=== PATIENT | male | born 1960 | race Caucasian/White ===

== ENCOUNTER 2016-02-28 18:03 | Emergency (ER) | payer OTHER ==
[2016-02-28] MEDS ORDERED: IPRATROPIUM-ALBUTEROL 3 ML NEB INHALATION STA (20:07)
--- NOTE | 2016-02-28 20:12 | ED ---
General Adult HPI - General Chief complaint: Shortness of Breath Stated complaint: diff swallow, coughing Time Seen by Provider: 02/28/16 19:41 Source: patient, RN notes reviewed Mode of arrival: ambulatory Limitations: no limitations - History of Present Illness Initial comments: Patient is a 55-year-old male presents to the emergency room for evaluation of cough and congestion. Patient states he's had a cough for the past week. Patient denies taking anything for symptoms. Patient states he has a productive cough and is coughing up white phlegm. Patient does admit to having history of COPD which he uses an inhaler as needed for. Patient also states that he smokes about a pack per day. Patient denies any fevers. Patient denies chills. Patient also states he's had a sore throat for the past week. Patient states it hurts to swallow. Patient denies abdominal pain, nausea, vomiting, headache, dizziness, ear pain, neck pain. Patient states he feels short of breath after having a coughing attack. Patient denies any chest pain. Patient denies any other significant past medical history besides COPD. - Related Data Home Medications Medication Instructions Recorded Confirmed Budesonide/Formoterol Fumarate 2 puff INHALATION RT-BID 02/28/16 02/28/16 [Symbicort 160-4.5 Mcg Inhaler] Previous Rx's Medication Instructions Recorded Azithromycin [Zithromax Z-pack] 250 mg PO DIRECTED #6 tab 02/28/16 predniSONE 50 mg PO DAILY #5 tab 02/28/16 Allergies Allergy/AdvReac Type Severity Reaction Status Date / Time aspirin Allergy Rash/Hives Verified 09/23/15 01:49 Review of Systems ROS Statement: Those systems with pertinent positive or pertinent negative responses have been documented in the HPI. ROS Other: All systems not noted in ROS Statement are negative. Past Medical History Past Medical History: COPD History of Any Multi-Drug Resistant Organisms: None Reported Past Surgical History: No Surgical Hx Reported Additional Past Surgical History / Comment(s): abdominal surgery Past Psychological History: No Psychological Hx Reported Smoking Status: Current every day smoker Past Alcohol Use History: Occasional Past Drug Use History: None Reported General Exam - General Exam Comments Initial Comments: Sitting in exam room in no acute distress. Limitations: no limitations General appearance: alert, in no apparent distress Head exam: Present: atraumatic, normocephalic, normal inspection Eye exam: Present: normal appearance ENT exam: Present: normal exam, normal oropharynx, mucous membranes moist, TM's normal bilaterally Neck exam: Present: normal inspection, full ROM. Absent: tenderness, lymphadenopathy Respiratory exam: Present: wheezes. Absent: respiratory distress Cardiovascular Exam: Present: regular rate, normal rhythm, normal heart sounds GI/Abdominal exam: Present: soft, normal bowel sounds. Absent: distended, tenderness, guarding, rebound, rigid Extremities exam: Present: normal inspection, normal capillary refill Back exam: Present: normal inspection Neurological exam: Present: alert, oriented X3, CN II-XII intact, normal gait Psychiatric exam: Present: normal affect, normal mood Skin exam: Present: warm, dry, intact, normal color. Absent: rash Course Vital Signs 02/28/16 02/28/16 02/28/16 18:25 20:31 20:46 Temperature 97.4 F L Pulse Rate 76 60 66 Respiratory 16 Rate Blood Pressure 139/74 O2 Sat by Pulse 98 Oximetry 02/28/16 21:54 Temperature 97.8 F Pulse Rate 69 Respiratory 18 Rate Blood Pressure 135/74 O2 Sat by Pulse 96 Oximetry Medical Decision Making - Medical Decision Making Patient is a 55-year-old male presents emergency room for evaluation of cough and congestion. Chest x-ray shows no acute findings. Patient states he feels better after the updraft. Given patient's past medical history of COPD and symptoms lasting longer than 7 days, will place patient on antibiotics and prednisone. Discussed smoking cessation with patient. Patient states he understands everything that was discussed with him. Return parameters discussed. Case discussed with Dr. Rodriguez. - Lab Data Lab Results 02/28/16 02/28/16 Range/Units 20:21 20:21 Influenza Type A RNA Not Detected (Not Detectd) Influenza Type B (PCR) Not Detected (Not Detectd) Group A Strep Rapid Negative (Negative) - Radiology Data Radiology results: report reviewed, image reviewed Disposition Clinical Impression: Upper respiratory infection, COPD (chronic obstructive pulmonary disease) Disposition: HOME SELF-CARE Condition: Good Instructions: COPD (Chronic Obstructive Pulmonary Disease) (ED), How to Stop Smoking (ED) Additional Instructions: Take medications as directed. Continue using inhaler as needed. Please follow up with primary care provider in 24-48 hours for reevaluation. If any new symptom arises, symptoms worsen or fever develops, return to ER as soon as possible. Prescriptions: Azithromycin [Zithromax Z-pack] 250 mg PO DIRECTED #6 tab predniSONE 50 mg PO DAILY #5 tab Referrals: Kristi Saab MD [Primary Care Provider] - 1-2 days Time of Disposition: 21:43
--- NOTE | 2016-02-28 21:13 | XR ---
EXAMINATION TYPE: XR chest 2V DATE OF EXAM: 02/28/2016 8:50 PM COMPARISON: NONE HISTORY: Cough and congestion TECHNIQUE: Frontal and lateral views of the chest are obtained. FINDINGS: There is no focal air space opacity, pleural effusion, or pneumothorax seen. The cardiac silhouette size is within normal limits. There is thoracic dextro curvature. The osseous structures are intact. IMPRESSION: NO ACUTE CARDIOPULMONARY PROCESS.
[2016-02-28 21:55] VITALS: BP 135/74; PULSE 69; RESP 18; TEMP 97.8
== END 2016-02-28 21:54 | disposition home or self-care (01) ==
LOC: EC 18:03
DX: J06.9 Acute upper respiratory infection, unspecified (principal); J44.9 Chronic obstructive pulmonary disease, unspecified; Z79.51 Long term (current) use of inhaled steroids; Z88.6 Allergy status to analgesic agent; F17.200 Nicotine dependence, unspecified, uncomplicated
CPT/HCPCS: 71020; 87081; 87430; 87502; 94640; 99285

== ENCOUNTER 2016-09-18 22:26 | Emergency (ER) | payer OTHER ==
[2016-09-18 22:35] VITALS: BP 148/76; PULSE 67; RESP 18; TEMP 97.7
--- NOTE | 2016-09-18 23:02 | ED ---
General Adult HPI - General Chief complaint: ENT Stated complaint: ear pain Time Seen by Provider: 09/18/16 22:40 Source: patient, RN notes reviewed Mode of arrival: ambulatory Limitations: no limitations - History of Present Illness Initial comments: 56 yo male with history of COPD presents with bleeding from his left ear. Patient states he was cleaning his ear with a Q-tip, and he was able to get some black substance out and then immediately had bright red blood. He also had some pain associated with the use of the Q-tip. There was no fever chills. No pain prior to using a Q-tip. Denies any hearing loss. Denies any persistent bleeding. - Related Data Home Medications Medication Instructions Recorded Confirmed Budesonide/Formoterol Fumarate 2 puff INHALATION RT-BID 02/28/16 09/18/16 [Symbicort 160-4.5 Mcg Inhaler] Ipratropium-Albuterol Nebulize 3 ml INHALATION RT-Q6H 09/18/16 09/18/16 [Duoneb 0.5 mg-3 mg/3 ml Soln] Montelukast [Singulair] 10 mg PO HS 09/18/16 09/18/16 Previous Rx's Medication Instructions Recorded Ciprofloxacin-Hc Otic Susp [Cipro 3 drops LEFT EAR BID #10 ml 09/18/16 Hc Otic Suspension] Allergies Allergy/AdvReac Type Severity Reaction Status Date / Time aspirin Allergy Rash/Hives Verified 09/18/16 22:52 Review of Systems ROS Statement: Those systems with pertinent positive or pertinent negative responses have been documented in the HPI. ROS Other: All systems not noted in ROS Statement are negative. Past Medical History Past Medical History: COPD History of Any Multi-Drug Resistant Organisms: None Reported Past Surgical History: No Surgical Hx Reported Additional Past Surgical History / Comment(s): abdominal surgery Past Psychological History: No Psychological Hx Reported Smoking Status: Current every day smoker Past Alcohol Use History: Occasional Past Drug Use History: None Reported General Exam Limitations: no limitations General appearance: alert, in no apparent distress Head exam: Present: atraumatic, normocephalic Eye exam: Present: normal appearance, PERRL ENT exam: Present: normal exam, normal oropharynx, other (Left external ear canal has small amount dry blood, the anterior portion of the left tympanic membrane is ruptured. There is no active hemorrhage.) Neck exam: Present: normal inspection, full ROM Respiratory exam: Present: normal lung sounds bilaterally. Absent: respiratory distress Cardiovascular Exam: Present: regular rate, normal rhythm GI/Abdominal exam: Present: soft. Absent: distended Course Vital Signs 09/18/16 22:32 Temperature 97.7 F Pulse Rate 67 Respiratory 18 Rate Blood Pressure 148/76 O2 Sat by Pulse 97 Oximetry Medical Decision Making - Medical Decision Making 56-year-old male presents with bleeding from the left ear. This was after using a Q-tip. Patient did feel moderate amount of pain which is currently resolved. Denies any hearing loss. On examination he does have a ruptured tympanic membrane on the left. There is no active bleeding. Patient is prescribed ciprofloxacin suspension and will follow up with both his primary care physician and ENT. Disposition Clinical Impression: Ruptured tympanic membrane Disposition: HOME SELF-CARE Condition: Good Instructions: Ruptured Eardrum (ED) Prescriptions: Ciprofloxacin-Hc Otic Susp [Cipro Hc Otic Suspension] 3 drops LEFT EAR BID #10 ml Referrals: Kristi Saab MD [Primary Care Provider] - 1-2 days Fred Schuster DO [Doctor of Osteopathic Medicine] - 1-2 days Time of Disposition: 23:01
== END 2016-09-18 23:10 | disposition home or self-care (01) ==
LOC: EC 22:26
DX: H72.92 Unspecified perforation of tympanic membrane, left ear (principal); J44.9 Chronic obstructive pulmonary disease, unspecified; F17.200 Nicotine dependence, unspecified, uncomplicated; Z88.6 Allergy status to analgesic agent; Z79.51 Long term (current) use of inhaled steroids; Z79.899 Other long term (current) drug therapy
CPT/HCPCS: 99282

== ENCOUNTER 2017-03-22 08:48 | Emergency (ER) | payer OTHER ==
[2017-03-22] MEDS ORDERED: IBUPROFEN 600 MG TAB PO STA (09:24)
[2017-03-22] MEDS ORDERED: SODIUM CHLORIDE 0.9% 1,000 ML IV STA (09:24)
[2017-03-22] MEDS ORDERED: IPRATROPIUM-ALBUTEROL 3 ML NEB INHALATION STA (09:25)
--- NOTE | 2017-03-22 09:29 | ED ---
General Adult HPI - General Chief complaint: Upper Respiratory Infection Stated complaint: FLU LIKE SYMPTOMS Time Seen by Provider: 03/22/17 08:59 Source: patient, RN notes reviewed Mode of arrival: ambulatory Limitations: no limitations - History of Present Illness Initial comments: Patient 56-year-old male who presents emergency room today with chief complaint of increased bodyaches for cough congestion that started yesterday. He doesn't chills. He received body aches in his back and his arms. Patient states fell and could not get warm last night. He does admit to congestion and cough with sputum production as been white in color. States all the symptoms started yesterday. Has not taken any Tylenol Motrin. Patient denies any other complaints or symptoms. Patient admits to history of COPD a pack-a-day smoker. Patient denies any recent shortness of breath, chest pain, nausea or vomiting, numbness or tingling, dysuria or hematuria, constipation, headaches or visual changes, or any other complaints. - Related Data Home Medications Medication Instructions Recorded Confirmed Ipratropium-Albuterol Nebulize 3 ml INHALATION RT-Q6H PRN 09/18/16 03/22/17 [Duoneb 0.5 mg-3 mg/3 ml Soln] Albuterol Inhaler [Ventolin Hfa 1 - 2 puff INHALATION RT-Q4H PRN 03/22/17 Inhaler] predniSONE See Taper PO DIRECTED 03/22/17 03/22/17 Previous Rx's Medication Instructions Recorded Azithromycin [Zithromax Z-pack] 0 mg PO DIRECTED #6 tab 03/22/17 Allergies Allergy/AdvReac Type Severity Reaction Status Date / Time aspirin Allergy Rash/Hives Verified 03/22/17 09:11 Review of Systems ROS Statement: Those systems with pertinent positive or pertinent negative responses have been documented in the HPI. ROS Other: All systems not noted in ROS Statement are negative. Past Medical History Past Medical History: COPD History of Any Multi-Drug Resistant Organisms: None Reported Past Surgical History: No Surgical Hx Reported Additional Past Surgical History / Comment(s): abdominal surgery Past Psychological History: No Psychological Hx Reported Smoking Status: Current every day smoker Past Alcohol Use History: Occasional Past Drug Use History: None Reported General Exam - General Exam Comments Initial Comments: General: The patient is awake and alert, in no distress, and does not appear acutely ill. Eye: Pupils are equal, round and reactive to light, extra-ocular movements are intact. No nystagmus. There is normal conjunctiva bilaterally. No signs of icterus. Ears, nose, mouth and throat: There are moist mucous membranes and no oral lesions. Neck: The neck is supple, there is no tenderness or JVD. Cardiovascular: There is a regular rate and rhythm. No murmur, rub or gallop is appreciated. Respiratory: Expiratory wheeze bilaterally. respirations are non-labored, breath sounds are equal. No stridor, rales, or rhonchi. Gastrointestinal: Soft, non-distended, non-tender abdomen without masses or organomegaly noted. There is no rebound or guarding present. No CVA tenderness. Bowel sounds are unremarkable. Musculoskeletal: Normal ROM, no tenderness. Strength 5/5. Sensation intact. Pulses equal bilaterally 2+. Neurological: A&O x 3. CN II-XII intact, There are no obvious motor or sensory deficits. Coordination appears grossly intact. Speech is normal. Skin: Skin is warm and dry and no rashes or lesions are noted. Psychiatric: Cooperative, appropriate mood & affect, normal judgment. Limitations: no limitations Course Vital Signs 03/22/17 03/22/17 03/22/17 08:53 09:55 10:04 Temperature 97.2 F L Pulse Rate 66 51 L 55 L Respiratory 18 Rate Blood Pressure 166/83 O2 Sat by Pulse 99 Oximetry 03/22/17 10:22 Temperature Pulse Rate 59 L Respiratory 19 Rate Blood Pressure 127/64 O2 Sat by Pulse 99 Oximetry EKG Findings - EKG Comments: EKG Findings:: EKG performed at 0949: A 12-lead EKG was performed and interpreted by me as showing the following: Rate is 54, and rhythm is normal sinus. There are normal QRS complexes and normal R-wave progression. ST segments have no elevation or depression, and IL segments appear normal. Medical Decision Making - Medical Decision Making Case discussed in detail with attending physician Patient reexamined at this time shows no signs of distress resting comfortably. Patient's labs reviewed unremarkable. Chest x-ray shows no pneumonia. Patient will cover with antibiotics for bronchitis infection. Currently on steroids by the family doctor that it began yesterday. Advised continue steroids use antibiotic use of breathing treatments at home. Advised return here to the emergency room if symptoms increase worsen. - Lab Data Result diagrams: 03/22/17 09:33 03/22/17 09:33 Lab Results 03/22/17 03/22/17 03/22/17 Range/Units 09:33 09:33 09:36 WBC 7.4 (3.8-10.6) k/uL RBC 4.86 (4.30-5.90) m/uL Hgb 15.3 (13.0-17.5) gm/dL Hct 45.6 (39.0-53.0) % MCV 93.8 (80.0-100.0) fL MCH 31.4 (25.0-35.0) pg MCHC 33.4 (31.0-37.0) g/dL RDW 12.5 (11.5-15.5) % Plt Count 275 (150-450) k/uL Neutrophils % 69 % Lymphocytes % 22 % Monocytes % 6 % Eosinophils % 2 % Basophils % 1 % Neutrophils # 5.1 (1.3-7.7) k/uL Lymphocytes # 1.6 (1.0-4.8) k/uL Monocytes # 0.4 (0-1.0) k/uL Eosinophils # 0.1 (0-0.7) k/uL Basophils # 0.1 (0-0.2) k/uL Sodium 140 (137-145) mmol/L Potassium 4.2 (3.5-5.1) mmol/L Chloride 105 (98-107) mmol/L Carbon Dioxide 28 (22-30) mmol/L Anion Gap 7 mmol/L BUN 11 (9-20) mg/dL Creatinine 0.79 (0.66-1.25) mg/dL Est GFR (MDRD) Af Amer >60 (>60 ml/min/1.73 sqM) Est GFR (MDRD) Non-Af >60 (>60 ml/min/1.73 sqM) Glucose 98 (74-99) mg/dL Calcium 9.5 (8.4-10.2) mg/dL Total Bilirubin 0.6 (0.2-1.3) mg/dL AST 23 (17-59) U/L ALT 35 (21-72) U/L Alkaline Phosphatase 66 (38-126) U/L Total Protein 6.4 (6.3-8.2) g/dL Albumin 3.9 (3.5-5.0) g/dL Influenza Type A RNA Not Detected (Not Detectd) Influenza Type B (PCR) Not Detected (Not Detectd) Disposition Clinical Impression: Acute bronchitis Disposition: HOME SELF-CARE Condition: Good Instructions: Acute Bronchitis (ED) Additional Instructions: Please use medication as discussed. Please follow-up with family doctor in the next 2 days of symptoms have not improved. Please return to emergency room if the symptoms increase or worsen or for any other concerns. Prescriptions: Azithromycin [Zithromax Z-pack] 0 mg PO DIRECTED #6 tab Referrals: Kristi Saab MD [Primary Care Provider] - 1-2 days Time of Disposition: 11:20
[2017-03-22 09:54] LABS: Basophils # (A) 0.1 k/uL (0-0.2); Basophils % (A) 1 %; Eosinophils # (A) 0.1 k/uL (0-0.7); Eosinophils % (A) 2 %; HCT 45.6 % (39.0-53.0); HGB 15.3 gm/dL (13.0-17.5); Lymphocytes # (A) 1.6 k/uL (1.0-4.8); Lymphocytes % (A) 22 %; MCH 31.4 pg (25.0-35.0); MCHC 33.4 g/dL (31.0-37.0); MCV 93.8 fL (80.0-100.0); Mean Platelet Volume 6.6; Monocytes # (A) 0.4 k/uL (0-1.0); Monocytes % (A) 6 %; Neutrophils # (A) 5.1 k/uL (1.3-7.7); Neutrophils % (A) 69 %; Platelet Count 275 k/uL (150-450); RBC 4.86 m/uL (4.30-5.90); RDW 12.5 % (11.5-15.5); WBC 7.4 k/uL (3.8-10.6)
[2017-03-22 10:12] LABS: ALT 35 U/L (21-72); AST 23 U/L (17-59); Albumin 3.9 g/dL (3.5-5.0); Alkaline Phosphatase 66 U/L (38-126); Anion Gap 7 mmol/L; Blood Urea Nitrogen 11 mg/dL (9-20); Calcium 9.5 mg/dL (8.4-10.2); Carbon Dioxide 28 mmol/L (22-30); Chloride 105 mmol/L (98-107); Glucose 98 mg/dL (74-99); Potassium 4.2 mmol/L (3.5-5.1); Sodium 140 mmol/L (137-145); Total Bilirubin 0.6 mg/dL (0.2-1.3); Total Protein 6.4 g/dL (6.3-8.2)
--- NOTE | 2017-03-22 10:24 | XR ---
EXAMINATION TYPE: XR chest 2V DATE OF EXAM: 03/22/2017 COMPARISON: 02/28/2016 INDICATION: Cough congestion TECHNIQUE: Frontal and lateral views of the chest are obtained. FINDINGS: The heart size is normal. The pulmonary vasculature is normal. The lungs are clear. Scoliosis is present. IMPRESSION: 1. No acute pulmonary process.
[2017-03-22 11:32] VITALS: BP 127/76; PULSE 62; RESP 20; TEMP 97
== END 2017-03-22 11:38 | disposition home or self-care (01) ==
LOC: EC 08:48
DX: J20.9 Acute bronchitis, unspecified (principal); J44.0 Chronic obstructive pulmonary disease with (acute) lower respiratory infection; F17.210 Nicotine dependence, cigarettes, uncomplicated; Z79.52 Long term (current) use of systemic steroids; Z88.6 Allergy status to analgesic agent
CPT/HCPCS: 36415; 71046; 80053; 85025; 87502; 93005; 94640; 96360; 99284

== ENCOUNTER 2017-08-23 10:58 | Observation (INO) | payer OTHER ==
[2017-08-23] MEDS ORDERED: SODIUM CHLORIDE 0.9% 1,000 ML IV STA ×2 (11:39)
[2017-08-23] MEDS ORDERED: NALOXONE 0.4 MG/ML 10 ML VIAL IVP STA (11:41)
--- NOTE | 2017-08-23 12:07 | ED ---
General Adult HPI - General Chief complaint: Chest Pain Stated complaint: Chest pain Time Seen by Provider: 08/23/17 11:10 Source: patient, family, RN notes reviewed, old records reviewed Mode of arrival: ambulatory Limitations: no limitations - History of Present Illness Initial comments: This is a 57-year-old male to the ER for evaluation. This male presents ER for evaluation regarding not acting appropriately, sleeping, fatigue, occasional chest pain shortness of breath right-sided dizziness. Patient himself is a poor historian, not appropriately, not participating in history and physical - Related Data Home Medications Medication Instructions Recorded Confirmed Azithromycin [Zithromax Z-pack] See Taper PO DAILY 08/23/17 08/23/17 Beclomethasone Dipropionate [Qvar 1 puff INHALATION RT-BID 08/23/17 08/23/17 Redihaler] Lidocaine 4% Cream [Lmx 4] 1 applic TOPICAL BID PRN 08/23/17 08/23/17 predniSONE 60 mg PO DAILY 08/23/17 08/23/17 Allergies Allergy/AdvReac Type Severity Reaction Status Date / Time aspirin Allergy Rash/Hives Verified 08/23/17 11:04 Review of Systems ROS Statement: Those systems with pertinent positive or pertinent negative responses have been documented in the HPI. ROS Other: All systems not noted in ROS Statement are negative. Past Medical History Past Medical History: COPD History of Any Multi-Drug Resistant Organisms: None Reported Past Surgical History: No Surgical Hx Reported Additional Past Surgical History / Comment(s): abdominal surgery Past Psychological History: No Psychological Hx Reported Smoking Status: Current every day smoker Past Alcohol Use History: Occasional Past Drug Use History: None Reported General Exam Limitations: no limitations General appearance: alert, in no apparent distress Head exam: Present: atraumatic, normocephalic, normal inspection Eye exam: Present: normal appearance, PERRL, EOMI. Absent: scleral icterus, conjunctival injection, periorbital swelling ENT exam: Present: normal exam, mucous membranes moist Neck exam: Present: normal inspection. Absent: tenderness, meningismus, lymphadenopathy Respiratory exam: Present: normal lung sounds bilaterally. Absent: respiratory distress, wheezes, rales, rhonchi, stridor Cardiovascular Exam: Present: regular rate, normal rhythm, normal heart sounds. Absent: systolic murmur, diastolic murmur, rubs, gallop, clicks GI/Abdominal exam: Present: soft, normal bowel sounds. Absent: distended, tenderness, guarding, rebound, rigid Extremities exam: Present: normal inspection, full ROM, normal capillary refill. Absent: tenderness, pedal edema, joint swelling, calf tenderness Back exam: Present: normal inspection Neurological exam: Present: alert, oriented X3, CN II-XII intact Psychiatric exam: Present: normal affect, normal mood Skin exam: Present: warm, dry, intact, normal color. Absent: rash Course Vital Signs 08/23/17 11:01 Temperature 97.6 F Pulse Rate 95 Respiratory 24 Rate Blood Pressure 177/101 O2 Sat by Pulse 96 Oximetry - Reevaluation(s) Reevaluation #1: 08/23/17 14:01 Patient appears to be mildly awake and arousable currently. Breathing appears improved EKG Findings - EKG Comments: EKG Findings:: EKG shows sinus rhythm rate of 99, SD 136, QRS 92, QTc 472 Medical Decision Making - Medical Decision Making 57 male the ER for evaluation. Patient presents today for evaluation COPD. Patient will be admitted for pulmonology evaluation, evaluation regarding mental state - Lab Data Result diagrams: 08/23/17 11:16 08/23/17 11:16 Lab Results 08/23/17 08/23/17 08/23/17 Range/Units 11:16 11:16 11:16 WBC (3.8-10.6) k/uL RBC (4.30-5.90) m/uL Hgb (13.0-17.5) gm/dL Hct (39.0-53.0) % MCV (80.0-100.0) fL MCH (25.0-35.0) pg MCHC (31.0-37.0) g/dL RDW (11.5-15.5) % Plt Count (150-450) k/uL Neutrophils % % Lymphocytes % % Monocytes % % Eosinophils % % Basophils % % Neutrophils # (1.3-7.7) k/uL Lymphocytes # (1.0-4.8) k/uL Monocytes # (0-1.0) k/uL Eosinophils # (0-0.7) k/uL Basophils # (0-0.2) k/uL PT (9.0-12.0) sec INR (<1.2) APTT (22.0-30.0) sec Sodium 140 (137-145) mmol/L Potassium 3.6 (3.5-5.1) mmol/L Chloride 103 (98-107) mmol/L Carbon Dioxide 24 (22-30) mmol/L Anion Gap 13 mmol/L BUN 11 (9-20) mg/dL Creatinine 0.86 (0.66-1.25) mg/dL Est GFR (CKD-EPI)AfAm >90 (>60 ml/min/1.73 sqM) Est GFR (CKD-EPI)NonAf >90 (>60 ml/min/1.73 sqM) Glucose 109 H (74-99) mg/dL Plasma Lactic Acid Clint 1.4 (0.7-2.0) mmol/L Calcium 9.2 (8.4-10.2) mg/dL Magnesium 1.8 (1.6-2.3) mg/dL Total Bilirubin 0.6 (0.2-1.3) mg/dL AST 20 (17-59) U/L ALT 34 (21-72) U/L Alkaline Phosphatase 85 (38-126) U/L Ammonia <9 (<30) umol/L Total Creatine Kinase 93 (55-170) U/L CK-MB (CK-2) 2.1 (0.0-2.4) ng/mL CK-MB (CK-2) Rel Index 2.3 Troponin I <0.012 (0.000-0.034) ng/mL NT-Pro-B Natriuret Pep pg/mL Total Protein 6.5 (6.3-8.2) g/dL Albumin 4.1 (3.5-5.0) g/dL Lipase 31 (23-300) U/L TSH 0.780 (0.465-4.680) mIU/L Urine Color Urine Appearance (Clear) Urine pH (5.0-8.0) Ur Specific [place] (1.001-1.035) Urine Protein (Negative) Urine Glucose (UA) (Negative) Urine Ketones (Negative) Urine Blood (Negative) Urine Nitrite (Negative) Urine Bilirubin (Negative) Urine Urobilinogen (<2.0) mg/dL Ur Leukocyte Esterase (Negative) Salicylates <1.0 mg/dL Urine Opiates Screen (NotDetected) Ur Oxycodone Screen (NotDetected) Urine Methadone Screen (NotDetected) Ur Propoxyphene Screen (NotDetected) Acetaminophen <10.0 ug/mL Ur Barbiturates Screen (NotDetected) U Tricyclic Antidepress (NotDetected) Ur Phencyclidine Scrn (NotDetected) Ur Amphetamines Screen (NotDetected) U Methamphetamines Scrn (NotDetected) U Benzodiazepines Scrn (NotDetected) Urine Cocaine Screen (NotDetected) U Marijuana (THC) Screen (NotDetected) Serum Alcohol <10 mg/dL 08/23/17 08/23/17 08/23/17 Range/Units 11:16 11:16 11:16 WBC 13.1 H (3.8-10.6) k/uL RBC 4.89 (4.30-5.90) m/uL Hgb 15.8 (13.0-17.5) gm/dL Hct 46.5 (39.0-53.0) % MCV 95.1 (80.0-100.0) fL MCH 32.4 (25.0-35.0) pg MCHC 34.1 (31.0-37.0) g/dL RDW 13.0 (11.5-15.5) % Plt Count 295 (150-450) k/uL Neutrophils % 81 % Lymphocytes % 13 % Monocytes % 5 % Eosinophils % 0 % Basophils % 0 % Neutrophils # 10.7 H (1.3-7.7) k/uL Lymphocytes # 1.7 (1.0-4.8) k/uL Monocytes # 0.6 (0-1.0) k/uL Eosinophils # 0.0 (0-0.7) k/uL Basophils # 0.0 (0-0.2) k/uL PT 9.9 (9.0-12.0) sec INR 1.0 (<1.2) APTT 22.9 (22.0-30.0) sec Sodium (137-145) mmol/L Potassium (3.5-5.1) mmol/L Chloride (98-107) mmol/L Carbon Dioxide (22-30) mmol/L Anion Gap mmol/L BUN (9-20) mg/dL Creatinine (0.66-1.25) mg/dL Est GFR (CKD-EPI)AfAm (>60 ml/min/1.73 sqM) Est GFR (CKD-EPI)NonAf (>60 ml/min/1.73 sqM) Glucose (74-99) mg/dL Plasma Lactic Acid Clint (0.7-2.0) mmol/L Calcium (8.4-10.2) mg/dL Magnesium (1.6-2.3) mg/dL Total Bilirubin (0.2-1.3) mg/dL AST (17-59) U/L ALT (21-72) U/L Alkaline Phosphatase (38-126) U/L Ammonia (<30) umol/L Total Creatine Kinase (55-170) U/L CK-MB (CK-2) (0.0-2.4) ng/mL CK-MB (CK-2) Rel Index Troponin I (0.000-0.034) ng/mL NT-Pro-B Natriuret Pep 154 pg/mL Total Protein (6.3-8.2) g/dL Albumin (3.5-5.0) g/dL Lipase (23-300) U/L TSH (0.465-4.680) mIU/L Urine Color Urine Appearance (Clear) Urine pH (5.0-8.0) Ur Specific [place] (1.001-1.035) Urine Protein (Negative) Urine Glucose (UA) (Negative) Urine Ketones (Negative) Urine Blood (Negative) Urine Nitrite (Negative) Urine Bilirubin (Negative) Urine Urobilinogen (<2.0) mg/dL Ur Leukocyte Esterase (Negative) Salicylates mg/dL Urine Opiates Screen (NotDetected) Ur Oxycodone Screen (NotDetected) Urine Methadone Screen (NotDetected) Ur Propoxyphene Screen (NotDetected) Acetaminophen ug/mL Ur Barbiturates Screen (NotDetected) U Tricyclic Antidepress (NotDetected) Ur Phencyclidine Scrn (NotDetected) Ur Amphetamines Screen (NotDetected) U Methamphetamines Scrn (NotDetected) U Benzodiazepines Scrn (NotDetected) Urine Cocaine Screen (NotDetected) U Marijuana (THC) Screen (NotDetected) Serum Alcohol mg/dL 08/23/17 Range/Units 12:55 WBC (3.8-10.6) k/uL RBC (4.30-5.90) m/uL Hgb (13.0-17.5) gm/dL Hct (39.0-53.0) % MCV (80.0-100.0) fL MCH (25.0-35.0) pg MCHC (31.0-37.0) g/dL RDW (11.5-15.5) % Plt Count (150-450) k/uL Neutrophils % % Lymphocytes % % Monocytes % % Eosinophils % % Basophils % % Neutrophils # (1.3-7.7) k/uL Lymphocytes # (1.0-4.8) k/uL Monocytes # (0-1.0) k/uL Eosinophils # (0-0.7) k/uL Basophils # (0-0.2) k/uL PT (9.0-12.0) sec INR (<1.2) APTT (22.0-30.0) sec Sodium (137-145) mmol/L Potassium (3.5-5.1) mmol/L Chloride (98-107) mmol/L Carbon Dioxide (22-30) mmol/L Anion Gap mmol/L BUN (9-20) mg/dL Creatinine (0.66-1.25) mg/dL Est GFR (CKD-EPI)AfAm (>60 ml/min/1.73 sqM) Est GFR (CKD-EPI)NonAf (>60 ml/min/1.73 sqM) Glucose (74-99) mg/dL Plasma Lactic Acid Clint (0.7-2.0) mmol/L Calcium (8.4-10.2) mg/dL Magnesium (1.6-2.3) mg/dL Total Bilirubin (0.2-1.3) mg/dL AST (17-59) U/L ALT (21-72) U/L Alkaline Phosphatase (38-126) U/L Ammonia (<30) umol/L Total Creatine Kinase (55-170) U/L CK-MB (CK-2) (0.0-2.4) ng/mL CK-MB (CK-2) Rel Index Troponin I (0.000-0.034) ng/mL NT-Pro-B Natriuret Pep pg/mL Total Protein (6.3-8.2) g/dL Albumin (3.5-5.0) g/dL Lipase (23-300) U/L TSH (0.465-4.680) mIU/L Urine Color Light Yellow Urine Appearance Clear (Clear) Urine pH 6.5 (5.0-8.0) Ur Specific [place] 1.005 (1.001-1.035) Urine Protein Negative (Negative) Urine Glucose (UA) Negative (Negative) Urine Ketones Negative (Negative) Urine Blood Negative (Negative) Urine Nitrite Negative (Negative) Urine Bilirubin Negative (Negative) Urine Urobilinogen <2.0 (<2.0) mg/dL Ur Leukocyte Esterase Negative (Negative) Salicylates mg/dL Urine Opiates Screen Not Detected (NotDetected) Ur Oxycodone Screen Not Detected (NotDetected) Urine Methadone Screen Not Detected (NotDetected) Ur Propoxyphene Screen Not Detected (NotDetected) Acetaminophen ug/mL Ur Barbiturates Screen Not Detected (NotDetected) U Tricyclic Antidepress Not Detected (NotDetected) Ur Phencyclidine Scrn Not Detected (NotDetected) Ur Amphetamines Screen Not Detected (NotDetected) U Methamphetamines Scrn Not Detected (NotDetected) U Benzodiazepines Scrn Not Detected (NotDetected) Urine Cocaine Screen Not Detected (NotDetected) U Marijuana (THC) Screen Not Detected (NotDetected) Serum Alcohol mg/dL - Radiology Data Radiology results: report reviewed (Chest x-rays negative for acute disease), image reviewed Disposition Clinical Impression: Acute bronchitis with COPD Disposition: ADMITTED IP TO THIS HOSP Condition: Fair Is patient prescribed a controlled substance at d/c from ED?: No Referrals: Kristi Saab MD [Primary Care Provider] - 1-2 days
[2017-08-23 12:16] LABS: Basophils % (A) 0 %; Eosinophils % (A) 0 %; HCT 46.5 % (39.0-53.0); HGB 15.8 gm/dL (13.0-17.5); Lymphocytes # (A) 1.7 k/uL (1.0-4.8); Lymphocytes % (A) 13 %; MCH 32.4 pg (25.0-35.0); MCHC 34.1 g/dL (31.0-37.0); MCV 95.1 fL (80.0-100.0); Mean Platelet Volume 6.8; Monocytes # (A) 0.6 k/uL (0-1.0); Monocytes % (A) 5 %; Neutrophils # (A) 10.7 k/uL (1.3-7.7); Neutrophils % (A) 81 %; Platelet Count 295 k/uL (150-450); RBC 4.89 m/uL (4.30-5.90); WBC 13.1 k/uL (3.8-10.6)
[2017-08-23 12:26] LABS: Ammonia <9 umol/L (<30); Lactic Acid, Venous 1.4 mmol/L (0.7-2.0)
[2017-08-23 12:27] LABS: ALT 34 U/L (21-72); AST 20 U/L (17-59); Acetaminophen <10.0 ug/mL; Albumin 4.1 g/dL (3.5-5.0); Alcohol <10 mg/dL; Alkaline Phosphatase 85 U/L (38-126); Anion Gap 13 mmol/L; Blood Urea Nitrogen 11 mg/dL (9-20); Calcium 9.2 mg/dL (8.4-10.2); Carbon Dioxide 24 mmol/L (22-30); Chloride 103 mmol/L (98-107); Glucose 109 mg/dL (74-99); Lipase 31 U/L (23-300); Magnesium 1.8 mg/dL (1.6-2.3); Potassium 3.6 mmol/L (3.5-5.1); Salicylate <1.0 mg/dL; Sodium 140 mmol/L (137-145); Total Bilirubin 0.6 mg/dL (0.2-1.3); Total Protein 6.5 g/dL (6.3-8.2)
[2017-08-23 12:30] LABS: Partial Thromboplastin Time 22.9 sec (22.0-30.0); Prothrombin Time 9.9 sec (9.0-12.0)
[2017-08-23 12:43] LABS: Creatine Kinase 93 U/L (55-170)
--- NOTE | 2017-08-23 12:51 | XR ---
EXAMINATION TYPE: XR chest 2V DATE OF EXAM: 08/23/2017 COMPARISON: 03/22/2017 HISTORY: 57-year-old male with chest pain TECHNIQUE: PA and lateral views FINDINGS: Heart normal size. Aorta within normal limits. Strandy densities in the lungs with mild interstitial prominence and hyperinflation compatible with underlying COPD. No consolidation or pleural effusion. Dextroconvex scoliosis. IMPRESSION: COPD and chronic parenchymal changes. No acute process seen. Scoliosis.
[2017-08-23 12:54] LABS: Creatine Kinase MB 2.1 ng/mL (0.0-2.4); Troponin I <0.012 ng/mL (0.000-0.034)
[2017-08-23 13:12] LABS: Appearance,Urine Clear (Clear); Bilirubin,Urine Negative (Negative); Blood,Urine Negative (Negative); Color,Urine Light Yellow; Glucose,Urine (UA) Negative (Negative); Ketones,Urine Negative (Negative); Leukocyte Esterase,Urine Negative (Negative); Nitrite,Urine Negative (Negative); PH, Urine 6.5 (5.0-8.0); Protein,Urine Negative (Negative); Specific Gravity,Urine 1.005 (1.001-1.035); Urobilinogen,Urine <2.0 mg/dL (<2.0)
[2017-08-23 13:17] LABS: Amphetamine Screen,Urine Not Detected (NotDetected); Barbiturate Screen,Urine Not Detected (NotDetected); Benzodiazepines Screen,Urine Not Detected (NotDetected); Cocaine Screen,Urine Not Detected (NotDetected); Methadone Screen, Urine Not Detected (NotDetected); Opiate Screen,Urine Not Detected (NotDetected); Oxycodone Screen, Urine Not Detected (NotDetected); Phencyclidine Screen,Urine Not Detected (NotDetected); Tricyclic Antidepressant,Urine Not Detected (NotDetected); Urn Cannabinoid Scrn Not Detected (NotDetected)
[2017-08-23] MEDS ORDERED: methylPREDNISolone SOD SUCCI 125 MG/2 ML VIAL IV STA (14:00)
--- NOTE | 2017-08-23 15:10 | P.CNPUL ---
History of Present Illness Consult date: 08/23/17 Requesting physician: Marry Vuong Reason for consult: COPD Chief complaint: Shortness of breath History of present illness: Abdirashid Oneill is a 57 year old male being seen and examined evaluated today while in the emergency room waiting for a bed inpatient. The patient states he has been having some chest pressure along with significant shortness of breath that has been ongoing since last Sunday. He states he was seen in the emergency room twice and discharged home with antibiotics and a steroid taper. He states he has been having intermittent chest pain with numbness in his left arm as well. He has been taking breathing treatments at home which have not been helping. He does have a cough however has been unable to bring up any sputum due to thickness. He denies any fevers states he has had some chills with lightheadedness. Chest x-ray was reviewed and shows no acute process and chronic COPD. Patient is also followed in the outpatient setting with our office as well. He is a current 1 pack per day smoker for approximately 40 years. He did used to smoke 2 and half packs per day. Upon examination he is lying in bed with family at bedside on room air. Has shortness of breath with exertion and activity as well as a congested cough. He is afebrile denies any further complaints. All labs were reviewed, troponins were negative Past Medical History Past Medical History: COPD History of Any Multi-Drug Resistant Organisms: None Reported Past Surgical History: No Surgical Hx Reported Additional Past Surgical History / Comment(s): abdominal surgery Past Psychological History: No Psychological Hx Reported Smoking Status: Current every day smoker Past Alcohol Use History: Occasional Past Drug Use History: None Reported Medications and Allergies Home Medications Medication Instructions Recorded Confirmed Type Azithromycin [Zithromax Z-pack] See Taper PO DAILY 08/23/17 08/23/17 History Beclomethasone Dipropionate [Qvar 1 puff INHALATION RT-BID 08/23/17 08/23/17 History Redihaler] Lidocaine 4% Cream [Lmx 4] 1 applic TOPICAL BID PRN 08/23/17 08/23/17 History predniSONE 60 mg PO DAILY 08/23/17 08/23/17 History Allergies Allergy/AdvReac Type Severity Reaction Status Date / Time aspirin Allergy Rash/Hives Verified 08/23/17 11:04 Physical Exam Vitals: Vital Signs Temp Pulse Resp BP Pulse Ox 08/23/17 11:01 97.6 F 95 24 177/101 96 Intake and Output 08/22/17 08/23/17 08/23/17 22:59 06:59 14:59 Other: Weight 65.771 kg GENERAL EXAM: Alert, comfortable in no apparent distress. HEAD: Normocephalic. EYES: Normal reaction of pupils, equal size. NOSE: Clear with pink turbinates. THROAT: No erythema or exudates. NECK: No masses, no JVD. CHEST: No chest wall deformity. LUNGS: Lungs noted to be coarse throughout with some expiratory wheezing. Bases diminished. CVS: S1 and S2 normal with no audible mumurs, regular rhythm. ABDOMEN: No hepatosplenomegaly, normal bowel sounds, no guarding or rigidity. EXTREMITIES: No edema noted, pedal pulses palpable. CENTRAL NERVOUS SYSTEM: No focal deficits, tone is normal in all 4 extremities. Results - Laboratory Findings CBC and BMP: 08/23/17 11:16 08/23/17 11:16 PT/INR, D-dimer PT 9.9 sec (9.0-12.0) 08/23/17 11:16 INR 1.0 (<1.2) 08/23/17 11:16 Abnormal lab findings: Abnormal Labs 08/23/17 08/23/17 11:16 11:16 WBC 13.1 H Neutrophils # 10.7 H Glucose 109 H - Diagnostic Findings Chest x-ray: report reviewed, image reviewed Assessment and Plan Assessment: Assessment Acute exacerbation of COPD Tracheobronchitis Nicotine dependence Chest pain Plan Medications have been reviewed and will be continued as ordered. Add doxycycline IV steroids Continue with pulmonary hygiene, coughing and deep breathing exercises, and supportive care. Supplemental oxygen to maintain oxygen saturations of 92% or better. Continue nebulizer treatments. Add budesonide Obtain sputum culture Repeat labs in the morning Smoking cessation GI and DVT prophylaxis. We will continue to monitor labs/results and adjust treatment as necessary. Further recommendations pending. I performed an examination of the patient and discussed their management with the nurse practitioner. I have reviewed the nurse practitioner's note and agree with the documented findings and plan of care.
--- NOTE | 2017-08-23 15:50 | P.HPIM ---
History of Present Illness H&P Date: 08/23/17 Chief Complaint: Left-sided chest pain with increased shortness breath. This is a 57-year-old male one of Dr. Saab with a previous medical history significant for chronic tobacco use and dependence with the chronic COPD, patient developed to have left-sided chest pain last Sunday and he ended up coming to the emergency department at [facility] yesterday and the day before yesterday and he was complaining of some headache at the same time he ended up having computed tomography scan of the brain that showed no evidence of acute of normalities, chest x-ray showed the pleural reaction without any evidence of acute pulmonary disease with the normal heart, patient was given oral antibiotic and the however the patient never took the medication he did receive a shot of morphine in the ER and he was sent home on patient today was driving to go down to [place] for evaluation according to the patient and that he called Dr. SAUL Jaramillo's office and he asked him to go to the ER at the [facility] where he was seen and the patient labs were okay patient was seen in the emergency department and he was seen earlier bipolar medicine he was recommended for the patient to be admitted to the hospital for evaluation by pulmonary as well as by cardiology due to his chest pain patient EKG did not show any evidence of acute abnormalities and no ST-T wave changes. Review of Systems Constitutional: Denies anorexia, Denies chronic headaches, Denies lethargy, Denies malaise, Denies weakness, Denies weight gain Eyes: denies blurred vision, denies bulging eye, denies decreased vision Ears: deny: decreased hearing Ears, nose, mouth and throat: Denies dysphagia, Denies neck lump, Denies sore throat Cardiovascular: Reports chest pain, Reports decreased exercise tolerance, Reports dyspnea on exertion, Reports shortness of breath, Denies high blood pressure, Denies rapid heart beat, Denies syncope Respiratory: Reports congestion, Reports cough with sputum, Reports dyspnea, Reports wheezing, Denies home oxygen, Denies sleep apnea, Denies snoring Gastrointestinal: Denies abdominal pain, Denies BRBPR, Denies heartburn, Denies melena, Denies nausea, Denies vomiting Genitourinary: Denies dysuria, Denies polyuria Musculoskeletal: Denies myalgias Musculoskeletal: absent: ankle pain, ankle stiffness, ankle swelling, elbow pain , elbow stiffness, elbow swelling, foot pain, foot stiffness, foot swelling, hand pain, hand stiffness, hand swelling, hip pain, hip stiffness, hip swelling , knee pain, knee stiffness, knee swelling, shoulder pain, shoulder stiffness, shoulder swelling, wrist pain, wrist stiffness, wrist swelling Integumentary: Denies pruritus, Denies rash Neurological: Denies numbness, Denies weakness Psychiatric: Denies anxiety, Denies depression Endocrine: Denies fatigue, Denies weight change Past Medical History Past Medical History: COPD, Osteoarthritis (OA) Additional Past Medical History / Comment(s): Hyperparathyroidism status post parathyroidectomy. History of Any Multi-Drug Resistant Organisms: None Reported Additional Past Surgical History / Comment(s): abdominal surgery, parathyroidectomy and sinus surgery. Past Psychological History: No Psychological Hx Reported Smoking Status: Current every day smoker (Patient smokes about pack every day he used to smoke about 2-1/2 pack a day when he started but now is down to pack every day) Past Alcohol Use History: Occasional (He drinks occasionally but he used to be a heavy drinker used to drink a gallon of alcohol between beer and whiskey every 2 days but that was many years ago.) Past Drug Use History: None Reported - Past Family History Father Family Medical History: No Reported History (Father in his 30s from homicide) Mother Family Medical History: No Reported History (Mother is 81-year-old has no major medical problems.) Brother(s) Family Medical History: Unable to Obtain (Patient has 8 brothers doesn't know much about their medical history.) Sister(s) Family Medical History: Unable to Obtain (Patient has one sister does not know much about her medical history.) Son(s) Family Medical History: No Reported History (Patient has 3 sons no major medical problems.) Medications and Allergies Home Medications Medication Instructions Recorded Confirmed Type Azithromycin [Zithromax Z-pack] See Taper PO DAILY 08/23/17 08/23/17 History Beclomethasone Dipropionate [Qvar 1 puff INHALATION RT-BID 08/23/17 08/23/17 History Redihaler] Lidocaine 4% Cream [Lmx 4] 1 applic TOPICAL BID PRN 08/23/17 08/23/17 History predniSONE 60 mg PO DAILY 08/23/17 08/23/17 History Allergies Allergy/AdvReac Type Severity Reaction Status Date / Time aspirin Allergy Rash/Hives Verified 08/23/17 11:04 Physical Exam Vitals: Vital Signs Temp Pulse Resp BP Pulse Ox 08/23/17 14:15 90 138/77 98 08/23/17 13:15 84 142/70 99 08/23/17 12:15 77 141/75 99 08/23/17 11:01 97.6 F 95 24 177/101 96 Intake and Output 08/23/17 08/23/17 08/23/17 06:59 14:59 22:59 Other: Weight 65.771 kg - Constitutional General appearance: average body habitus, mild distress - EENT Eyes: anicteric sclerae, EOMI, PERRLA, no ptosis, no scleral icterus, normal appearance ENT: hearing grossly normal, NA/AT, normal oropharynx, no thrush Ears: bilateral: normal - Neck Neck: no lymphadenopathy, normal ROM, no rigidity, no stridor, no thyromegaly Carotids: bilateral: upstroke normal Thyroid: bilateral: normal size - Respiratory Respiratory: bilateral: diminished, wheezing, prolonged expiration, negative: dullness, rales, rhonchi - Cardiovascular Rhythm: regular Heart sounds: normal: S1, S2 Abnormal Heart Sounds: systolic murmur, no S3 Gallop - Gastrointestinal General gastrointestinal: normal bowel sounds, soft, no splenomegaly, no tenderness, no umbilical hernia - Integumentary Integumentary: normal, normal turgor - Neurologic Neurologic: CNII-XII intact - Musculoskeletal Musculoskeletal: strength equal bilaterally - Psychiatric Psychiatric: A&O x's 3, appropriate affect, intact judgment & insight Results CBC & Chem 7: 08/23/17 11:16 08/23/17 11:16 Labs: Abnormal Lab Results - Last 24 Hours (Table) 08/23/17 08/23/17 Range/Units 11:16 11:16 WBC 13.1 H (3.8-10.6) k/uL Neutrophils # 10.7 H (1.3-7.7) k/uL Glucose 109 H (74-99) mg/dL Thrombosis Risk Factor Assmnt - DVT/VTE Prophylaxis DVT/VTE Prophylaxis: Pharmacologic Prophylaxis ordered, Mechanical Prophylaxis ordered Assessment and Plan Assessment: Assessment and plan: 1. Acute COPD exacerbation with acute bronchitis. DuoNeb 3 mg nebulization 4 times every day, Pulmicort 1 mg nebulization twice every day, continue doxycycline 100 mg orally twice every day, Solu-Medrol 60 mg IV push every 6 hours, pulmonary consultation is in place. 2. Left-sided chest pain. Patient will have an echocardiogram and he would be seen in consultation by cardiology. 3. Chronic tobacco use and dependence. Smoking cessation and counseling an increased risk of CAD, CVA, and malignancy. 4. Prior history of alcohol abuse. Patient stated that he quit many years ago. 5. History of hyperparathyroidism status post surgery. 6. DVT prophylaxis. Continue patient on heparin 5000 units subcutaneous every 12 hours. 7. GI prophylaxis. Continue Protonix 40 mg orally once every day. 8. Admit to inpatient. 9. Patient is full code.
[2017-08-23] MEDS: methylPREDNISolone SOD SUCCI 125 MG/2 ML VIAL IV SCH ×2 (18:05→23:32)
[2017-08-23] MEDS: INSULIN ASPART 100 UNIT/ML 1 ML 10 ML VIAL SQ SCH ×2 (18:06→21:37)
[2017-08-23] MEDS: IPRATROPIUM-ALBUTEROL 3 ML NEB INHALATION SCH ×2 (18:39→21:40)
[2017-08-23 20:26] LABS: Glucose,Whole Blood 139 mg/dL (75-99)
[2017-08-23] MEDS: guaiFENesin 600 MG TABLET.ER PO SCH (21:37)
[2017-08-23] MEDS: DOXYCYCLINE MONOHYDRATE 100 MG CAPSULE PO SCH (21:37)
[2017-08-23] MEDS: HEPARIN SODIUM,PORCINE 5,000 UNIT/ML 1 ML VIAL SQ SCH (21:39)
[2017-08-23] MEDS: BUDESONIDE 0.5 MG/2 ML NEBU INHALATION SCH (21:39)
[2017-08-24] MEDS: methylPREDNISolone SOD SUCCI 125 MG/2 ML VIAL IV SCH (06:15)
[2017-08-24 07:02] LABS: Glucose,Whole Blood 156 mg/dL (75-99)
[2017-08-24] MEDS: IPRATROPIUM-ALBUTEROL 3 ML NEB INHALATION SCH ×3 (07:10→15:31)
[2017-08-24] MEDS: BUDESONIDE 0.5 MG/2 ML NEBU INHALATION SCH (07:10)
[2017-08-24] MEDS ORDERED: PANTOPRAZOLE 40 MG TABLET PO SCH (07:30)
[2017-08-24 07:53] LABS: Basophils % (A) 0 %; Eosinophils % (A) 0 %; HCT 40.2 % (39.0-53.0); HGB 13.2 gm/dL (13.0-17.5); Lymphocytes # (A) 0.8 k/uL (1.0-4.8); Lymphocytes % (A) 4 %; MCH 31.6 pg (25.0-35.0); MCHC 32.8 g/dL (31.0-37.0); MCV 96.5 fL (80.0-100.0); Monocytes # (A) 0.6 k/uL (0-1.0); Monocytes % (A) 3 %; Neutrophils # (A) 17.5 k/uL (1.3-7.7); Neutrophils % (A) 92 %; Platelet Count 260 k/uL (150-450); RBC 4.17 m/uL (4.30-5.90)
[2017-08-24 08:00] LABS: ALT 29 U/L (21-72); AST 13 U/L (17-59); Albumin 3.2 g/dL (3.5-5.0); Alkaline Phosphatase 86 U/L (38-126); Anion Gap 9 mmol/L; Blood Urea Nitrogen 14 mg/dL (9-20); Calcium 8.6 mg/dL (8.4-10.2); Carbon Dioxide 24 mmol/L (22-30); Chloride 105 mmol/L (98-107); Glucose 152 mg/dL (74-99); Sodium 138 mmol/L (137-145); Total Bilirubin 0.3 mg/dL (0.2-1.3); Total Protein 5.3 g/dL (6.3-8.2)
--- NOTE | 2017-08-24 09:32 | P.PN ---
Subjective Progress Note Date: 08/24/17 History of present illness: Abdirashid Oneill is a 57 year old male being seen and examined evaluated today while in the emergency room waiting for a bed inpatient. The patient states he has been having some chest pressure along with significant shortness of breath that has been ongoing since last Sunday. He states he was seen in the emergency room twice and discharged home with antibiotics and a steroid taper. He states he has been having intermittent chest pain with numbness in his left arm as well. He has been taking breathing treatments at home which have not been helping. He does have a cough however has been unable to bring up any sputum due to thickness. He denies any fevers states he has had some chills with lightheadedness. Chest x-ray was reviewed and shows no acute process and chronic COPD. Patient is also followed in the outpatient setting with our office as well. He is a current 1 pack per day smoker for approximately 40 years. He did used to smoke 2 and half packs per day. Upon examination he is lying in bed with family at bedside on room air. Has shortness of breath with exertion and activity as well as a congested cough. He is afebrile denies any further complaints. All labs were reviewed, troponins were negative Interval History: 08/24/17- patient is being seen examined and evaluated today on rounds. He is resting up in bedside chair on room air. States he is feeling significantly better today. Echocardiogram was obtained yesterday and is currently pending. He states his shortness of breath is improving. He still gets short of breath with some exertional activities. States the breathing treatments are helping significantly. He is afebrile no further complaints. Objective - Vital Signs Vital signs: Vital Signs Temp 97.8 F 08/24/17 06:15 Pulse 70 08/24/17 07:24 Resp 16 08/24/17 06:15 BP 126/67 08/24/17 06:15 Pulse Ox 96 08/24/17 07:12 Intake & Output 08/23/17 08/24/17 08/24/17 18:59 06:59 18:59 Intake Total 400 200 Balance 400 200 Weight 65.771 kg Intake: Oral 400 200 Other: Voiding Method Toilet Urinal # Voids 1 - Exam GENERAL EXAM: Alert, comfortable in no apparent distress. HEAD: Normocephalic. EYES: Normal reaction of pupils, equal size. NOSE: Clear with pink turbinates. THROAT: No erythema or exudates. NECK: No masses, no JVD. CHEST: No chest wall deformity. LUNGS: Lungs noted to be coarse throughout with some expiratory wheezing. Bases diminished. CVS: S1 and S2 normal with no audible mumurs, regular rhythm. ABDOMEN: No hepatosplenomegaly, normal bowel sounds, no guarding or rigidity. EXTREMITIES: No edema noted, pedal pulses palpable. CENTRAL NERVOUS SYSTEM: No focal deficits, tone is normal in all 4 extremities. - Labs CBC & Chem 7: 08/24/17 07:15 08/24/17 07:15 Labs: Abnormal Lab Results - Last 24 Hours (Table) 08/23/17 08/23/17 08/23/17 Range/Units 11:16 11:16 20:24 WBC 13.1 H (3.8-10.6) k/uL RBC (4.30-5.90) m/uL Neutrophils # 10.7 H (1.3-7.7) k/uL Lymphocytes # (1.0-4.8) k/uL Glucose 109 H (74-99) mg/dL POC Glucose (mg/dL) 139 H (75-99) mg/dL AST (17-59) U/L Total Protein (6.3-8.2) g/dL Albumin (3.5-5.0) g/dL 08/24/17 08/24/17 08/24/17 Range/Units 06:58 07:15 07:15 WBC 19.0 H (3.8-10.6) k/uL RBC 4.17 L (4.30-5.90) m/uL Neutrophils # 17.5 H (1.3-7.7) k/uL Lymphocytes # 0.8 L (1.0-4.8) k/uL Glucose 152 H (74-99) mg/dL POC Glucose (mg/dL) 156 H (75-99) mg/dL AST 13 L (17-59) U/L Total Protein 5.3 L (6.3-8.2) g/dL Albumin 3.2 L (3.5-5.0) g/dL Assessment and Plan Assessment: Assessment Acute exacerbation of COPD Tracheobronchitis Nicotine dependence Chest pain Plan Medications have been reviewed and will be continued as ordered. Antibiotics: doxycycline IV steroids, decreased Echocardiogram pending Continue with pulmonary hygiene, coughing and deep breathing exercises, and supportive care. Supplemental oxygen to maintain oxygen saturations of 92% or better. Continue nebulizer treatments. Add budesonide Obtain sputum culture Repeat labs in the morning Smoking cessation GI and DVT prophylaxis. We will continue to monitor labs/results and adjust treatment as necessary. Further recommendations pending. I performed an examination of the patient and discussed their management with the nurse practitioner. I have reviewed the nurse practitioner's note and agree with the documented findings and plan of care.
[2017-08-24] MEDS: INSULIN ASPART 100 UNIT/ML 1 ML 10 ML VIAL SQ SCH ×2 (09:49→11:54)
[2017-08-24] MEDS: guaiFENesin 600 MG TABLET.ER PO SCH (09:49)
[2017-08-24] MEDS: DOXYCYCLINE MONOHYDRATE 100 MG CAPSULE PO SCH (09:49)
[2017-08-24] MEDS: HEPARIN SODIUM,PORCINE 5,000 UNIT/ML 1 ML VIAL SQ SCH ×2 (09:49→09:50)
[2017-08-24 11:34] LABS: Glucose,Whole Blood 160 mg/dL (75-99)
--- NOTE | 2017-08-24 11:43 | ECHOF ---
Referral Reason:sob MEASUREMENTS -------- HEIGHT: 170.2 cm WEIGHT: 65.8 kg BP: 177/101 RVIDd: 2.8 cm (< 3.3) IVSd: 1.0 cm (0.6 - 1.1) LVIDd: 4.4 cm (3.9 - 5.3) LVPWd: 1.0 cm (0.6 - 1.1) IVSs: 1.5 cm LVIDs: 2.9 cm LVPWs: 1.4 cm LAESV Index (A-L): 22.44 ml/m Ao Diam: 3.8 cm (2.0 - 3.7) AV Cusp: 2.3 cm (1.5 - 2.6) LA Diam: 3.2 cm (2.7 - 3.8) EPSS: 1.0 cm MV E Ken: 0.96 m/s MV DecT: 210 ms MV A Ken: 0.85 m/s MV E/A Ratio: 1.13 RAP: 5.00 mmHg RVSP: 22.02 mmHg MV EF SLOPE: 179.51 mm/s (70 - 150) MV EXCURSION: 2.51 cm (> 18.000) FINDINGS -------- Sinus rhythm. This was a technically adequate study. The left ventricular size is normal. Left ventricular wall thickness is normal. Overall left vent ricular systolic function is normal with, an EF between 55 - 60 %. The right ventricle is normal in size and function. Normal LA size by volume 22+/-6 ml/m2. The right atrium is normal in size. Aortic valve is trileaflet and is mildly thickened. There is no evidence of aortic regurgitation. There is no evidence of aortic stenosis. Mild mitral annular calcification present. There is trace to mild mitral regurgitation. Trace tricuspid regurgitation present. Right ventricular systolic pressure is normal at < 35 mmHg. There is no evidence of pulmonary hypertension. Trace/mild (physiologic) pulmonic regurgitation. The aortic root size is normal. Normal inferior vena cava with normal inspiratory collapse consistent with estimated right atrial pre ssure of 5 mmHg. There is no pericardial effusion. CONCLUSIONS -------- 1. Sinus rhythm. 2. This was a technically adequate study. 3. The left ventricular size is normal. 4. Left ventricular wall thickness is normal. 5. Overall left ventricular systolic function is normal with, an EF between 55 - 60 %. 6. Normal LA size by volume 22+/-6 ml/m2. 7. Aortic valve is trileaflet and is mildly thickened. 8. Mild mitral annular calcification present. 9. There is trace to mild mitral regurgitation. 10. Trace tricuspid regurgitation present. 11. Right ventricular systolic pressure is normal at < 35 mmHg. 12. There is no evidence of pulmonary hypertension. 13. Trace/mild (physiologic) pulmonic regurgitation. 14. The aortic root size is normal. 15. There is no pericardial effusion. BUGGY OPERATOR: Jaiden Villa RDCS
--- NOTE | 2017-08-24 12:06 | P.PN ---
Subjective Progress Note Date: 08/24/17 This is a 57-year-old male one of Dr. Saab with a previous medical history significant for chronic tobacco use and dependence with the chronic COPD, patient developed to have left-sided chest pain last Sunday and he ended up coming to the emergency department at [facility] yesterday and the day before yesterday and he was complaining of some headache at the same time he ended up having computed tomography scan of the brain that showed no evidence of acute of normalities, chest x-ray showed the pleural reaction without any evidence of acute pulmonary disease with the normal heart, patient was given oral antibiotic and the however the patient never took the medication he did receive a shot of morphine in the ER and he was sent home on patient today was driving to go down to [place] for evaluation according to the patient and that he called Dr. SAUL Jaramillo's office and he asked him to go to the ER at the [facility] where he was seen and the patient labs were okay patient was seen in the emergency department and he was seen earlier bipolar medicine he was recommended for the patient to be admitted to the hospital for evaluation by pulmonary as well as by cardiology due to his chest pain patient EKG did not show any evidence of acute abnormalities and no ST-T wave changes. 08/24: Patient is feeling a lot better today he denies any chest pain, or shortness breath, he has no coughing, no abdominal pain, he has no nausea vomiting or diarrhea, he underwent echocardiogram yesterday that was still pending at time of dictation. Objective - Vital Signs Vital signs: Vital Signs Temp 97.8 F 08/24/17 06:15 Pulse 70 08/24/17 07:24 Resp 16 08/24/17 06:15 BP 126/67 08/24/17 06:15 Pulse Ox 96 08/24/17 07:12 Intake & Output 08/23/17 08/24/17 08/24/17 18:59 06:59 18:59 Intake Total 400 200 Balance 400 200 Weight 65.771 kg Intake: Oral 400 200 Other: Voiding Method Toilet Urinal # Voids 1 - Exam - Constitutional General appearance: average body habitus, mild distress - EENT Eyes: anicteric sclerae, EOMI, PERRLA, no ptosis, no scleral icterus, normal appearance ENT: hearing grossly normal, NA/AT, normal oropharynx, no thrush Ears: bilateral: normal - Neck Neck: no lymphadenopathy, normal ROM, no rigidity, no stridor, no thyromegaly Carotids: bilateral: upstroke normal Thyroid: bilateral: normal size - Respiratory Respiratory: bilateral: diminished, wheezing, prolonged expiration, negative: dullness, rales, rhonchi - Cardiovascular Rhythm: regular Heart sounds: normal: S1, S2 Abnormal Heart Sounds: systolic murmur, no S3 Gallop - Gastrointestinal General gastrointestinal: normal bowel sounds, soft, no splenomegaly, no tenderness, no umbilical hernia - Integumentary Integumentary: normal, normal turgor - Neurologic Neurologic: CNII-XII intact - Musculoskeletal Musculoskeletal: strength equal bilaterally - Psychiatric Psychiatric: A&O x's 3, appropriate affect, intact judgment & insight - Labs CBC & Chem 7: 08/24/17 07:15 08/24/17 07:15 Labs: Abnormal Lab Results - Last 24 Hours (Table) 08/23/17 08/23/17 08/23/17 Range/Units 11:16 11:16 20:24 WBC 13.1 H (3.8-10.6) k/uL RBC (4.30-5.90) m/uL Neutrophils # 10.7 H (1.3-7.7) k/uL Lymphocytes # (1.0-4.8) k/uL Glucose 109 H (74-99) mg/dL POC Glucose (mg/dL) 139 H (75-99) mg/dL AST (17-59) U/L Total Protein (6.3-8.2) g/dL Albumin (3.5-5.0) g/dL 08/24/17 08/24/17 08/24/17 Range/Units 06:58 07:15 07:15 WBC 19.0 H (3.8-10.6) k/uL RBC 4.17 L (4.30-5.90) m/uL Neutrophils # 17.5 H (1.3-7.7) k/uL Lymphocytes # 0.8 L (1.0-4.8) k/uL Glucose 152 H (74-99) mg/dL POC Glucose (mg/dL) 156 H (75-99) mg/dL AST 13 L (17-59) U/L Total Protein 5.3 L (6.3-8.2) g/dL Albumin 3.2 L (3.5-5.0) g/dL Assessment and Plan Assessment: Assessment and Plan Assessment: Assessment and plan: 1. Acute COPD exacerbation with acute bronchitis. DuoNeb 3 mg nebulization 4 times every day, Pulmicort 1 mg nebulization twice every day, continue doxycycline 100 mg orally twice every day, Solu-Medrol 60 mg IV push every 6 hours, pulmonary consultation is in place. 2. Left-sided chest pain. Patient will have an echocardiogram, and based on the result of the echocardiogram he may need to see cardiology. 3. Chronic tobacco use and dependence. Smoking cessation and counseling an increased risk of CAD, CVA, and malignancy. 4. Prior history of alcohol abuse. Patient stated that he quit many years ago. 5. History of hyperparathyroidism status post surgery. 6. DVT prophylaxis. Continue patient on heparin 5000 units subcutaneous every 12 hours. 7. GI prophylaxis. Continue Protonix 40 mg orally once every day. 8. Home tomorrow morning.
[2017-08-24 14:49] VITALS: BP 122/65; PULSE 82; RESP 18; TEMP 97
[2017-08-24] MEDS ORDERED: methylPREDNISolone SOD SUCCI 40 MG/ML 1 ML VIAL IV SCH (16:00)
== END 2017-08-24 16:50 | disposition home or self-care (01) ==
LOC: EC 10:58 → 4MS4W 14:00
PROVIDERS: ADMIT Internal Medicine; ATTEND Internal Medicine
DX: J44.1 Chronic obstructive pulmonary disease with (acute) exacerbation (principal); J20.9 Acute bronchitis, unspecified; J44.0 Chronic obstructive pulmonary disease with (acute) lower respiratory infection; R07.89 Other chest pain; F17.210 Nicotine dependence, cigarettes, uncomplicated; E21.3 Hyperparathyroidism, unspecified; R42 Dizziness and giddiness; Z79.899 Other long term (current) drug therapy; Z79.51 Long term (current) use of inhaled steroids; Z79.52 Long term (current) use of systemic steroids; Z88.6 Allergy status to analgesic agent; R20.0 Anesthesia of skin; M19.90 Unspecified osteoarthritis, unspecified site
CPT/HCPCS: 96361 ×9; 96374 ×2; 99285 ×2; 96376 ×2; 36415; 94640 ×2; 94760; 93005; 93306; 83880; 80053 ×2; 84443; 82140; 82550; 82553; 83605; 83690; 83735; 84484; 85025 ×2; 85610; 85730; 81003; 87040; 80306; 83520 ×2; 80320; 71046; G0378 ×2; J2930 ×2

== ENCOUNTER 2018-03-23 11:38 | Observation (INO) | payer OTHER ==
[2018-03-23 11:47] VITALS: RESP 18
--- NOTE | 2018-03-23 12:13 | ED ---
Chest Pain HPI - General Chief Complaint: Chest Pain Stated Complaint: vomiting, lt arm numbness Time Seen by Provider: 03/23/18 11:50 Source: patient, RN notes reviewed, old records reviewed Mode of arrival: wheelchair Limitations: no limitations - History of Present Illness Initial Comments: This is a 37-year-old male the ER for evaluation presents today for evaluation of shortness of breath difficulty breathing and chest pain with history of COPD high blood pressure. No recent cardiac evaluation. No recent travel history no known sick contacts. MD Complaint: chest pain -: minutes(s) Onset: during rest Pain Location: substernal Pain Radiation: LUE Severity: mild Severity scale (1-10): 1 Quality: heaviness Consistency: constant Improves With: nothing Worsens With: nothing Anginal Symptoms: diaphoresis Other Symptoms: palpitations Treatments Prior to Arrival: none - Related Data Home Medications Medication Instructions Recorded Confirmed Albuterol Inhaler [Ventolin Hfa 2 puff INHALATION RT-BID 03/23/18 03/23/18 Inhaler] Albuterol Nebulized (Conc) 2.5 mg PO RT-DAILY PRN 03/23/18 03/23/18 [Ventolin Nebulized (Conc)] Allergies Allergy/AdvReac Type Severity Reaction Status Date / Time aspirin Allergy Rash/Hives Verified 03/23/18 21:30 Review of Systems ROS Statement: Those systems with pertinent positive or pertinent negative responses have been documented in the HPI. ROS Other: All systems not noted in ROS Statement are negative. EKG Findings - EKG Comments: EKG Findings:: EKG shows sinus rhythm rate of 62, DE 120, QRS 90, QTc 414 Past Medical History Past Medical History: COPD, Osteoarthritis (OA) Additional Past Medical History / Comment(s): Hyperparathyroidism status post parathyroidectomy. History of Any Multi-Drug Resistant Organisms: None Reported Past Surgical History: No Surgical Hx Reported Additional Past Surgical History / Comment(s): parathyroidectomy and sinus surgery. Past Anesthesia/Blood Transfusion Reactions: No Reported Reaction Past Psychological History: No Psychological Hx Reported Smoking Status: Current every day smoker Past Alcohol Use History: None Reported Past Drug Use History: None Reported - Past Family History Father Family Medical History: No Reported History Mother Family Medical History: No Reported History Brother(s) Family Medical History: Unable to Obtain Sister(s) Family Medical History: Unable to Obtain Son(s) Family Medical History: No Reported History General Exam Limitations: no limitations General appearance: alert, in no apparent distress Head exam: Present: atraumatic, normocephalic, normal inspection Eye exam: Present: normal appearance, PERRL, EOMI. Absent: scleral icterus, conjunctival injection, periorbital swelling ENT exam: Present: normal exam, mucous membranes moist Neck exam: Present: normal inspection. Absent: tenderness, meningismus, lymphadenopathy Respiratory exam: Present: normal lung sounds bilaterally. Absent: respiratory distress, wheezes, rales, rhonchi, stridor Cardiovascular Exam: Present: regular rate, normal rhythm, normal heart sounds. Absent: systolic murmur, diastolic murmur, rubs, gallop, clicks GI/Abdominal exam: Present: soft, normal bowel sounds. Absent: distended, tenderness, guarding, rebound, rigid Extremities exam: Present: normal inspection, full ROM, normal capillary refill. Absent: tenderness, pedal edema, joint swelling, calf tenderness Back exam: Present: normal inspection Neurological exam: Present: alert, oriented X3, CN II-XII intact Psychiatric exam: Present: normal affect, normal mood Skin exam: Present: warm, dry, intact, normal color. Absent: rash Course Vital Signs 03/23/18 11:45 Temperature 97.7 F Pulse Rate 77 Respiratory 18 Rate Blood Pressure 148/82 O2 Sat by Pulse 98 Oximetry Chest Pain MDM - MDM 57 male the ER for evasive chest pain, will be admitted for chest pain observation. Negative troponin negative EKG here in the emergency department Critical Care Time Critical Care Time: Yes Total Critical Care Time: 31 Disposition Clinical Impression: Acute bronchitis with COPD, Chest pain Disposition: ADMITTED IP TO THIS HOSP Condition: Undetermined Is patient prescribed a controlled substance at d/c from ED?: No
[2018-03-23] MEDS ORDERED: ONDANSETRON 4 MG/2 ML VIAL ONE (12:20)
[2018-03-23] MEDS ORDERED: SODIUM CHLORIDE 0.9% 1,000 ML BAG ONE ×2 (12:20)
[2018-03-23] MEDS ORDERED: HEPARIN SODIUM,PORCINE 5,000 UNIT/ML 1 ML VIAL ONE (12:20)
[2018-03-23] MEDS ORDERED: MORPHINE SULFATE 4 MG/ML SYRINGE ONE ×2 (12:20→18:19)
[2018-03-23] MEDS ORDERED: HEPARIN SOD,PORK IN 0.45% NACL PMX 25,000 UNIT/250 ML BAG IV ONE (12:20)
--- NOTE | 2018-03-23 13:08 | XR ---
EXAMINATION TYPE: XR chest 2V DATE OF EXAM: 03/23/2018 HISTORY: Chest Pain. REFERENCE: Previous study dated 08/23/2017. FINDINGS: The lungs are overinflated. The heart is not enlarged. There are chronic increased markings throughout the lungs. There is a dextroscoliosis. There is chronic blunting of the right CP angle. IMPRESSION: 1. COPD. 2. DEXTROSCOLIOSIS. 3. I COULD NOT EXCLUDE A SMALL, RIGHT-SIDED PLEURAL EFFUSION.
[2018-03-23] MEDS ORDERED: CYCLOBENZAPRINE 10 MG TAB PO PRN (21:27)
[2018-03-24 00:45] LABS: Creatine Kinase 80 U/L (55-170)
[2018-03-24] MEDS ORDERED: MORPHINE SULFATE 4 MG/ML SYRINGE IVP PRN (00:46)
[2018-03-24] MEDS ORDERED: ONDANSETRON 4 MG/2 ML VIAL IVP PRN (00:47)
[2018-03-24 00:56] LABS: Creatine Kinase MB 1.1 ng/mL (0.0-2.4); Troponin I <0.012 ng/mL (0.000-0.034)
[2018-03-24] MEDS ORDERED: SODIUM CHLORIDE 0.9% 1,000 ML IV SCH (01:00)
[2018-03-24 02:56] LABS: Creatine Kinase 84 U/L (55-170); Creatine Kinase MB 1.2 ng/mL (0.0-2.4); Troponin I <0.012 ng/mL (0.000-0.034)
[2018-03-24 05:41] LABS: Basophils # (A) 0.1 k/uL (0-0.2); Basophils % (A) 1 %; Eosinophils # (A) 0.2 k/uL (0-0.7); Eosinophils % (A) 2 %; HCT 48.2 % (39.0-53.0); HGB 16.1 gm/dL (13.0-17.5); Lymphocytes # (A) 2.1 k/uL (1.0-4.8); Lymphocytes % (A) 24 %; MCH 31.6 pg (25.0-35.0); MCHC 33.4 g/dL (31.0-37.0); MCV 94.6 fL (80.0-100.0); Mean Platelet Volume 7.4; Monocytes # (A) 0.5 k/uL (0-1.0); Monocytes % (A) 5 %; Neutrophils # (A) 5.7 k/uL (1.3-7.7); Neutrophils % (A) 66 %; Platelet Count 307 k/uL (150-450); RBC 5.09 m/uL (4.30-5.90); RDW 12.7 % (11.5-15.5); WBC 8.6 k/uL (3.8-10.6)
--- NOTE | 2018-03-24 08:43 | P.CRDCN ---
History of Present Illness Consult date: 03/24/18 Chief complaint: Chest pain History of present illness: This is a pleasant 57-year-old gentleman with a past medical history significant for chronic obstructive pulmonary disease and ongoing smoking presented to the emergency room complaining of chest discomfort. In August 2017, he was admitted to the hospital with chest discomfort felt to be atypical and at that point the patient underwent an echocardiogram which revealed normal LV function without any significant valvular abnormalities. At that point the patient was discharged home in stable medical condition. This time he was in his usual state of health until yesterday when he was sitting home drinking coffee and started experiencing discomfort in the chest, on the left side of the chest, without any radiation to the arms or neck or shoulders and without any associated symptoms of shortness of breath, dizziness , sweating, nausea or vomiting, or syncope. Because of that, the patient decided to come to the emergency room. The cardiac workup overall is unremarkable. The chest x-ray showed COPD. The EKG showed sinus rhythm without any ischemic ST or T-wave abnormalities but early repolarization. The cardiac enzymes checked and came in to be unremarkable. Past Medical History Past Medical History: COPD, Osteoarthritis (OA) Additional Past Medical History / Comment(s): Hyperparathyroidism status post parathyroidectomy. History of Any Multi-Drug Resistant Organisms: None Reported Past Surgical History: No Surgical Hx Reported Additional Past Surgical History / Comment(s): parathyroidectomy and sinus surgery. Past Anesthesia/Blood Transfusion Reactions: No Reported Reaction Past Psychological History: No Psychological Hx Reported Smoking Status: Current every day smoker Past Alcohol Use History: None Reported Past Drug Use History: None Reported - Past Family History Father Family Medical History: No Reported History Mother Family Medical History: No Reported History Brother(s) Family Medical History: Unable to Obtain Sister(s) Family Medical History: Unable to Obtain Son(s) Family Medical History: No Reported History Medications and Allergies Home Medications Medication Instructions Recorded Confirmed Type Albuterol Inhaler [Ventolin Hfa 2 puff INHALATION RT-BID 03/23/18 03/23/18 History Inhaler] Albuterol Nebulized (Conc) 2.5 mg PO RT-DAILY PRN 03/23/18 03/23/18 History [Ventolin Nebulized (Conc)] Allergies Allergy/AdvReac Type Severity Reaction Status Date / Time aspirin Allergy Rash/Hives Verified 01/26/19 21:30 Physical Exam Vitals: Vital Signs Temp Pulse Pulse Resp BP BP BP 03/24/18 07:05 97.9 F 60 18 107/71 03/24/18 04:25 97.7 F 58 L 18 108/67 03/24/18 03:28 18 03/24/18 00:00 18 03/23/18 23:32 98.5 F 70 18 120/62 03/23/18 20:00 98.3 F 65 18 109/70 03/23/18 11:45 97.7 F 77 18 148/82 Pulse Ox 03/24/18 07:05 96 03/24/18 04:25 95 03/24/18 03:28 03/24/18 00:00 03/23/18 23:32 95 03/23/18 20:00 93 L 03/23/18 11:45 98 Intake and Output 03/23/18 03/24/18 03/24/18 22:59 06:59 14:59 Other: # Voids 2 - Constitutional General appearance: no acute distress - Respiratory Respiratory: bilateral: wheezing - Cardiovascular Rhythm: regular Heart sounds: normal: S1, S2 Results 03/23/18 12:10 Cardiac Enzymes 03/23/18 03/23/18 Range/Units 12:10 23:37 CK-MB (CK-2) 1.2 1.1 (0.0-2.4) ng/mL Troponin I <0.012 <0.012 (0.000-0.034) ng/mL Coagulation 03/23/18 03/24/18 Range/Units 23:37 07:18 APTT 39.8 H 46.2 H (22.0-30.0) sec CBC 03/23/18 Range/Units 12:10 WBC 8.6 (3.8-10.6) k/uL RBC 5.09 (4.30-5.90) m/uL Hgb 16.1 (13.0-17.5) gm/dL Hct 48.2 (39.0-53.0) % Plt Count 307 (150-450) k/uL Current Medications Generic Name Dose Route Start Last Admin Trade Name Freq PRN Reason Stop Dose Admin Cyclobenzaprine HCl 10 mg 03/23/18 21:27 Flexeril PO TID PRN MUSCLE SPASM Sodium Chloride 1,000 mls @ 100 mls/hr 03/24/18 01:00 Saline 0.9% IV .Q10H BREANA Morphine Sulfate 4 mg 03/24/18 00:46 Morphine Sulfate (Inj) IVP Q4HR PRN Pain Ondansetron HCl 4 mg 03/24/18 00:47 Zofran IVP Q8H PRN Nausea And Vomiting Intake and Output 03/23/18 03/24/18 03/24/18 22:59 06:59 14:59 Other: # Voids 2 03/23/18 12:10 Assessment and Plan Assessment: Assessment #1 atypical chest discomfort. The patient currently is chest pain-free #2 chronic obstructive pulmonary disease #3 significant history of smoking Plan #1 acute coronary syndrome was ruled out. #2 severe underlying coronary artery disease to be ruled out. The patient need to have a stress test. He would rather have it done as an outpatient. #3 I will DC the heparin IV #4 get the patient up and around, if he is asymptomatic, he might be able to be discharged home and have a stress test as an outpatient. Thank you for allowing us participate in his care.
[2018-03-24 11:51] LABS: ALT 22 U/L (21-72); AST 23 U/L (17-59); Albumin 4.3 g/dL (3.5-5.0); Alcohol <10 mg/dL; Alkaline Phosphatase 70 U/L (38-126); Amylase 134 U/L (30-110); Anion Gap 8 mmol/L; Blood Urea Nitrogen 12 mg/dL (9-20); Calcium 9.4 mg/dL (8.4-10.2); Carbon Dioxide 26 mmol/L (22-30); Chloride 104 mmol/L (98-107); Glucose 119 mg/dL (74-99); Lipase 257 U/L (23-300); Phosphorus 4.1 mg/dL (2.5-4.5); Potassium 4.3 mmol/L (3.5-5.1); Sodium 138 mmol/L (137-145); Total Bilirubin 0.5 mg/dL (0.2-1.3); Total Protein 7.1 g/dL (6.3-8.2)
[2018-03-24 12:04] LABS: Creatine Kinase 84 U/L (55-170); Creatine Kinase MB 1.1 ng/mL (0.0-2.4); Troponin I <0.012 ng/mL (0.000-0.034)
[2018-03-24 15:35] LABS: Magnesium 1.8 mg/dL (1.6-2.3)
--- NOTE | 2018-03-24 15:46 | P.HPIM ---
History of Present Illness H&P Date: 03/24/18 Chief Complaint: Chest pain Patient is a 57-year-old male with known history of COPD on follow-up with Dr. Jaramillo, osteoarthritis, hyperparathyroidism status post parathyroidectomy, nicotine addiction came to ER with complaints of chest pain mainly the left retrosternal. No radiation. Denied any associated shortness of breath. No nausea vomiting or abdominal pain. Patient says that he did have 2-3 episodes of vomiting yesterday. Patient came to ER with further evolution of chest pain. No fever no chills. Patient does have cough which is dry. No fever no chills at home. Denied any unusual food intake. He does use inhalers at home for COPD. EKG showed normal sinus rhythm Chest x-ray showed COPD, dextroscoliosis, small right-sided pleural effusion cannot be excluded Troponin 3 negative Amylase 134 lipase 257 Patient had 2-D echocardiogram in August 2017 showed normal ejection fraction and no significant valvular abnormalities. Review of Systems Constitutional: Patient denies any fever or chills . No generalized weakness or weight loss. Abdomen: Patient denied nausea vomiting and diarrhea and abdominal pain. Cardiovascular: Patient denies any chest pain or short of breath no palpitations. Respiratory: patient denied any cough is from production. No shortness of breath Neurologic: Patient denied any numbness or tingling headache. Musculoskeletal: Patient denies any complaints of joint swelling or deformity. Skin: Negative Psychiatric: Negative Endocrine: No heat or cold intolerance. No recent weight gain. Genitourinary: No dysuria or hematuria. All other 14 point ROS negative except the above Past Medical History Past Medical History: COPD, Osteoarthritis (OA) Additional Past Medical History / Comment(s): Hyperparathyroidism status post parathyroidectomy. History of Any Multi-Drug Resistant Organisms: None Reported Past Surgical History: No Surgical Hx Reported Additional Past Surgical History / Comment(s): parathyroidectomy and sinus surgery. Past Anesthesia/Blood Transfusion Reactions: No Reported Reaction Past Psychological History: No Psychological Hx Reported Smoking Status: Current every day smoker Past Alcohol Use History: None Reported Past Drug Use History: None Reported - Past Family History Father Family Medical History: No Reported History Mother Family Medical History: No Reported History Brother(s) Family Medical History: Unable to Obtain Sister(s) Family Medical History: Unable to Obtain Son(s) Family Medical History: No Reported History Medications and Allergies Home Medications Medication Instructions Recorded Confirmed Type Albuterol Inhaler [Ventolin Hfa 2 puff INHALATION RT-BID 03/23/18 03/23/18 History Inhaler] Albuterol Nebulized (Conc) 2.5 mg PO RT-DAILY PRN 03/23/18 03/23/18 History [Ventolin Nebulized (Conc)] Allergies Allergy/AdvReac Type Severity Reaction Status Date / Time aspirin Allergy Rash/Hives Verified 03/23/18 21:30 Physical Exam Vitals: Vital Signs Temp Pulse Resp BP BP Pulse Ox 03/24/18 12:00 62 18 03/24/18 11:25 98.3 F 62 18 117/72 96 03/24/18 08:00 60 18 03/24/18 07:05 97.9 F 60 18 107/71 96 03/24/18 04:25 97.7 F 58 L 18 108/67 95 03/24/18 03:28 18 03/24/18 00:00 18 03/23/18 23:32 98.5 F 70 18 120/62 95 03/23/18 20:00 98.3 F 65 18 109/70 93 L Intake and Output 03/23/18 03/24/18 03/24/18 22:59 06:59 14:59 Intake Total 436 Balance 436 Intake: Oral 236 Other 200 Other: # Voids 2 PHYSICAL EXAMINATION: Patient is lying in the bed comfortably, no acute distress, awake alert and oriented.. HEENT: Normocephalic. Neck is supple. Pupils reactive. Nostrils clear. Oral cavity is moist. Ears reveal no drainage. Neck reveals no JVD, carotid bruits, or thyromegaly. CHEST EXAMINATION: Trachea is central. Symmetrical expansion. biLateral slow air entry. No wheezing no crackles.. CARDIAC: Normal S1, S2 with no gallops. No murmurs ABDOMEN: Soft. Bowel sounds normal. No organomegaly. No abdominal bruits. Extremities: reveal no edema. No clubbing or cyanosis Neurologically awake, alert, oriented x3 with well-coordinated movements. No focal deficits noted Skin: No rash or skin lesions. Psychiatric: Coperative. Nonsuicidal Musculoskeletal: No joint swelling or deformity. Normal range of motion. Results CBC & Chem 7: 03/23/18 12:10 03/23/18 12:10 Labs: Abnormal Lab Results - Last 24 Hours (Table) 03/23/18 03/23/18 03/24/18 Range/Units 12:10 23:37 07:18 APTT 39.8 H 46.2 H (22.0-30.0) sec Glucose 119 H (74-99) mg/dL Amylase 134 H (30-110) U/L Thrombosis Risk Factor Assmnt - DVT/VTE Prophylaxis DVT/VTE Prophylaxis: Pharmacologic Prophylaxis ordered Assessment and Plan Assessment: Atypical chest pain. Ruled out ACS. COPD not in exacerbation Nicotine addiction Nausea and vomiting improved now Osteoarthritis of multiple joints Hyperparathyroidism with history of parathyroidectomy DVT prophylaxis Plan: Patient will be continued on telemetry monitoring. Serial EKGs and troponins negative. Patient did have previous echocardiogram from August 2017. Patient will be continued on breathing treatments and pain management. Cardiology recommends stress test which can be done as an outpatient. Otherwise patient wants to be discharged home. Smoking cessation has been counseled extensively. \ Time with Patient: Greater than 30
[2018-03-24 15:49] VITALS: BP 135/78; PULSE 60; TEMP 97.5
[2018-03-24] MEDS ORDERED: HEPARIN SODIUM,PORCINE 5,000 UNIT/ML 1 ML VIAL SQ SCH (16:00)
== END 2018-03-24 17:18 | disposition home or self-care (01) ==
LOC: EC 11:38 → 1SOBS 15:53
PROVIDERS: ADMIT Hospitalist; ATTEND Hospitalist
DX: R07.89 Other chest pain (principal); R61 Generalized hyperhidrosis; R00.2 Palpitations; R20.0 Anesthesia of skin; R11.2 Nausea with vomiting, unspecified; R07.2 Precordial pain; J44.9 Chronic obstructive pulmonary disease, unspecified; R03.0 Elevated blood-pressure reading, without diagnosis of hypertension; F17.200 Nicotine dependence, unspecified, uncomplicated; M15.9 Polyosteoarthritis, unspecified; E21.3 Hyperparathyroidism, unspecified; Z88.6 Allergy status to analgesic agent; Z79.899 Other long term (current) drug therapy
CPT/HCPCS: 99291; 83880; 80053; 84443; 82150; 82550; 82553; 83690; 83735; 84100; 84484; 85025; 85730 ×2; 87502; 71046; G0378 ×2; G0480; 80320; 87503

== ENCOUNTER 2018-11-12 09:56 | Observation (INO) | payer OTHER ==
[2018-11-12] MEDS ORDERED: IPRATROPIUM-ALBUTEROL 3 ML NEB INHALATION STA (10:15)
--- NOTE | 2018-11-12 10:22 | ED ---
Chest Pain HPI - General Chief Complaint: Chest Pain Stated Complaint: CHEST PAIN, DARON Time Seen by Provider: 11/12/18 10:06 Source: patient, RN notes reviewed Mode of arrival: wheelchair Limitations: no limitations - History of Present Illness Initial Comments: This a 58-year-old male presents to emergency department with chief complaint of chest pain, chest tightness. Patient states that symptoms started yesterday he does admit that he feels short of breath and he has a history of COPD. Patient states that his been doing breathing treatments at home which helped but states that symptoms acute worsening. Patient denies any prior cardiac disease so he does not go to primary care physician a regular basis he denies history of hyperlipidemia or diabetes. Patient is a 1 pack per day smoker states that he used to smoke 3 packs per day. Patient denies any current nausea vomiting. Patient states pain is primarily on his left side of his chest. - Related Data Home Medications Medication Instructions Recorded Confirmed Albuterol Inhaler [Ventolin Hfa 2 puff INHALATION RT-QID PRN 03/23/18 11/12/18 Inhaler] Albuterol Nebulized [Ventolin 2.5 mg INHALATION RT-Q6H PRN 11/12/18 11/12/18 Nebulized] Allergies Allergy/AdvReac Type Severity Reaction Status Date / Time aspirin Allergy Rash/Hives Verified 11/12/18 10:14 ketchup Allergy Unknown Verified 11/12/18 10:14 Review of Systems ROS Statement: Those systems with pertinent positive or pertinent negative responses have been documented in the HPI. ROS Other: All systems not noted in ROS Statement are negative. EKG Findings - EKG Comments: EKG Findings:: EKG performed at 10:24 normal sinus rhythm rate of 61. 134 QRS 90 QT/QTc 408/410 Past Medical History Past Medical History: COPD, Osteoarthritis (OA) Additional Past Medical History / Comment(s): Hyperparathyroidism status post parathyroidectomy. History of Any Multi-Drug Resistant Organisms: None Reported Past Surgical History: No Surgical Hx Reported Additional Past Surgical History / Comment(s): parathyroidectomy and sinus surgery. Past Anesthesia/Blood Transfusion Reactions: No Reported Reaction Past Psychological History: No Psychological Hx Reported Smoking Status: Current every day smoker Past Alcohol Use History: None Reported Past Drug Use History: None Reported - Past Family History Father Family Medical History: No Reported History Mother Family Medical History: No Reported History Brother(s) Family Medical History: Unable to Obtain Sister(s) Family Medical History: Unable to Obtain Son(s) Family Medical History: No Reported History General Exam Limitations: no limitations General appearance: alert, in no apparent distress Head exam: Present: atraumatic, normocephalic, normal inspection Eye exam: Present: normal appearance, PERRL, EOMI. Absent: scleral icterus, conjunctival injection, periorbital swelling ENT exam: Present: normal exam, normal oropharynx, mucous membranes moist Neck exam: Present: normal inspection, full ROM. Absent: tenderness, meningismus, lymphadenopathy Respiratory exam: Present: wheezes. Absent: normal lung sounds bilaterally, respiratory distress, rales, rhonchi, stridor Cardiovascular Exam: Present: regular rate, normal rhythm, normal heart sounds. Absent: systolic murmur, diastolic murmur, rubs, gallop, clicks GI/Abdominal exam: Present: soft, normal bowel sounds. Absent: distended, tenderness, guarding, rebound, rigid Neurological exam: Present: alert Skin exam: Present: warm, dry, intact, normal color. Absent: rash Course Vital Signs 11/12/18 11/12/18 11/12/18 09:59 10:19 10:47 Temperature 98.0 F Pulse Rate 80 68 76 Respiratory 18 Rate Blood Pressure 175/81 O2 Sat by Pulse 97 Oximetry Chest Pain MDM - MDM 58-year-old male presented from chief complaint of chest pain. Patient has an extensive smoker has a history of COPD labs marked were EKG does not reveal any acute changes at this time patient will be admitted for chest pain observation repeat troponin cardiology evaluation. Disposition Clinical Impression: Chest pain, COPD (chronic obstructive pulmonary disease) Disposition: ADMITTED IP TO THIS HOSP Condition: Fair Referrals: None,Stated [Primary Care Provider] - 1-2 days
[2018-11-12 10:44] LABS: Basophils # (A) 0.1 k/uL (0-0.2); Basophils % (A) 1 %; Eosinophils # (A) 0.3 k/uL (0-0.7); Eosinophils % (A) 3 %; HCT 48.6 % (39.0-53.0); HGB 16.5 gm/dL (13.0-17.5); Lymphocytes # (A) 2.5 k/uL (1.0-4.8); Lymphocytes % (A) 24 %; MCH 31.2 pg (25.0-35.0); MCV 91.6 fL (80.0-100.0); Mean Platelet Volume 6.3; Monocytes # (A) 0.6 k/uL (0-1.0); Monocytes % (A) 6 %; Neutrophils # (A) 6.4 k/uL (1.3-7.7); Neutrophils % (A) 63 %; Platelet Count 271 k/uL (150-450); RDW 12.6 % (11.5-15.5)
[2018-11-12 10:53] LABS: ALT 17 U/L (21-72); AST 17 U/L (17-59); African American GFR (CKD) >90 (>60 ml/min/1.73 sqM); Albumin 4.1 g/dL (3.5-5.0); Alkaline Phosphatase 66 U/L (38-126); Anion Gap 8 mmol/L; Blood Urea Nitrogen 13 mg/dL (9-20); Calcium 9.1 mg/dL (8.4-10.2); Carbon Dioxide 30 mmol/L (22-30); Chloride 100 mmol/L (98-107); Glucose 142 mg/dL (74-99); Magnesium 1.8 mg/dL (1.6-2.3); Potassium 4.2 mmol/L (3.5-5.1); Sodium 138 mmol/L (137-145); Total Bilirubin 0.5 mg/dL (0.2-1.3); Total Protein 6.7 g/dL (6.3-8.2)
[2018-11-12 10:59] LABS: D-Dimer 0.33 mg/L FEU (<0.60); INR 0.9 (<1.2); Partial Thromboplastin Time 24.8 sec (22.0-30.0); Prothrombin Time 10.2 sec (9.0-12.0)
--- NOTE | 2018-11-12 11:29 | XR ---
EXAMINATION TYPE: XR chest 2V DATE OF EXAM: 11/12/2018 COMPARISON: 03/23/2018 HISTORY: 58-year-old male with chest pain TECHNIQUE: PA and lateral views FINDINGS: Heart normal size. Aorta within normal limits. Mild central peribronchial cuffing and hyperinflation with flattening of the hemidiaphragms. No javed consolidation or pleural effusion seen. Dextro convex scoliosis. IMPRESSION: COPD and scoliosis. Chronic appearing parenchymal changes. No definite acute process.
[2018-11-12] MEDS ORDERED: HEPARIN SODIUM,PORCINE 5,000 UNIT/ML 1 ML VIAL IV ONE (11:37)
[2018-11-12] MEDS ORDERED: NITROGLYCERIN SL TABS 0.4 MG TAB SUBLINGUAL PRN (11:37)
[2018-11-12] MEDS: HEPARIN SOD,PORK IN 0.45% NACL 25,000 UNIT in 0.45% NACL 1 250ML.BAG IV SCH (12:23)
[2018-11-12] MEDS: IPRATROPIUM-ALBUTEROL 3 ML NEB INHALATION SCH ×3 (14:02→19:26)
[2018-11-12 14:57] VITALS: RESP 18
--- NOTE | 2018-11-12 15:02 | P.CRDCN ---
History of Present Illness History of present illness: This is a pleasant 58-year-old male past medical history significant for COPD, hyperparathyroidism status post parathyroidectomy and chronic nicotine dependence. He denies prior history of coronary artery disease, hypertension, diabetes mellitus or dyslipidemia. He does not see a program director group work in the outpatient setting. We have been asked him in consultation secondary to chest discomfort. He states for the last few days he has been experiencing a tightness across his chest. There is no radiation to the arm, back, neck or jaw. At times the pain is felt worse in the left precordial region. His pain specifically woke him up yesterday morning and was associated with shortness of breath and light headed like he was going to pass out. He got back into bed and rested. His pain slowly subsided. He also has been coughing more frequently. Typically he has a regular dry cough however in the last few days he has been bringing up white/clear sputum. He denies PND, orthopnea or fever/chills at home. Upon arrival blood pressure was elevated 175/81, he states his blood pressure does fluctuate however he does not take daily medications. He states he does not follow regularly with a physician. His shortness of breath did improve after DuoNeb treatment. His pain is somewhat reproducible, specifically he states his chest hurt when they were taking his echo. EKG reveals sinus mechanism with inferior Q-waves, no acute ST or T wave abnormalities noted. Chest x-ray reveals hyperinflation suggestive of COPD and scoliosis with no acute cardiopulmonary process. Laboratory data reviewed, CBC unremarkable, d-dimer 0.33, sodium 138, potassium 4.2, creatinine 1.0, magnesium 1.8, cardiac enzymes negative 1, proBNP 70. He takes no daily cardiac medications. Most recent echocardiogram performed July 2017 reveals normal LV systolic function with ejection fraction 55-60%. At the time of my exam: CONSTITUTIONAL: Denies fever. Denies chills. EYES: Denies blurred vision. Denies vision changes. Denies eye pain. EARS, NOSE, MOUTH & THROAT: Denies headache. Denies sore throat. Denies ear pain. CARDIOVASCULAR: Complains of intermittent pleuritic chest pain. Denies shortness of breath. Denies orthopnea. Denies PND. Denies palpitations. RESPIRATORY: Denies cough. GASTROINTESTINAL: Denies abdominal pain. Denies diarrhea. Denies constipation. Denies nausea. Denies vomiting. MUSCULOSKELETAL: Denies myalgias. INTEGUMENTARY: Denies pruitis. Denies rash. NEUROLOGIC: Denies numbness. Denies tingling. Denies weakness. PSYCHIATRIC: Denies anxiety. Denies depression. ENDOCRINE: Denies fatigue. Denies weight change. Denies polydipsia. Denies polyurina. GENITOURINARY: Denies burning, hematuria or urgency with micturation. HEMATOLOGIC: Denies history of anemia. Denies bleeding. Blood pressure 134/87 heart rate 98 afebrile maintaining oxygen saturation on nasal cannula GENERAL: This is a 58-year-old male in no apparent distress at the time of my examination. HEENT: Head is atraumatic, normocephalic. Pupils are equal, round. Sclerae anicteric. Conjunctivae are clear. Mucous membranes of the mouth are moist. Neck is supple. There is no jugular venous distention. No carotid bruit is heard. LUNGS: Expiratory wheeze, no rales or rhonchi. Diminished bilaterally. Mild chest wall tenderness is noted on palpation over the left precordial region. No pain with deep breathing. HEART: Regular rate and rhythm without murmurs, rubs or gallops. S1 and S2 heard. ABDOMEN: Soft, nontender. Bowel sounds are heard. No organomegaly noted. EXTREMITIES: No evidence of peripheral edema and no calf tenderness noted. VASCULAR: Radial and dorsalis pedis pulses palpated, no evidence of clubbing. NEUROLOGIC: Patient is awake, alert and oriented x3. ASSESSMENT Chest pain, atypical. COPD Hypertension Chronic nicotine dependence History of parathyroidectomy PLAN Continue to obtain serial cardiac enzymes to rule out an acute event. Check lipid panel. Hold aspirin as he has an allergy of rash and hives. Echocardiogram has been obtained and will be reviewed. NPO after midnight tonight for possible stress test vs coronary angiography depending on clinical course. Continue to monitor blood pressure and consider initiation of JUANCARLOS or ARB depending on subsequent readings. Smoking cessation recommended. Further recommendations to follow. Thank you kindly for this consultation. Nurse Practitioner note has been reviewed, I agree with a documented findings and plan of care. Patient was seen and examined. Past Medical History Past Medical History: COPD, Osteoarthritis (OA) Additional Past Medical History / Comment(s): Hyperparathyroidism status post parathyroidectomy. History of Any Multi-Drug Resistant Organisms: None Reported Past Surgical History: No Surgical Hx Reported Additional Past Surgical History / Comment(s): parathyroidectomy and sinus surgery. Past Anesthesia/Blood Transfusion Reactions: No Reported Reaction Past Psychological History: No Psychological Hx Reported Smoking Status: Current every day smoker Past Alcohol Use History: None Reported Past Drug Use History: None Reported - Past Family History Father Family Medical History: No Reported History Mother Family Medical History: No Reported History Brother(s) Family Medical History: Unable to Obtain Sister(s) Family Medical History: Unable to Obtain Son(s) Family Medical History: No Reported History Medications and Allergies Home Medications Medication Instructions Recorded Confirmed Type Albuterol Inhaler [Ventolin Hfa 2 puff INHALATION RT-QID PRN 03/23/18 11/12/18 History Inhaler] Albuterol Nebulized [Ventolin 2.5 mg INHALATION RT-Q6H PRN 11/12/18 11/12/18 History Nebulized] Allergies Allergy/AdvReac Type Severity Reaction Status Date / Time aspirin Allergy Rash/Hives Verified 11/12/18 10:14 ketchup Allergy Unknown Verified 11/12/18 10:14 Physical Exam Vitals: Vital Signs Temp Pulse Resp BP Pulse Ox 11/12/18 14:23 98 16 134/87 99 11/12/18 14:14 68 11/12/18 14:03 71 11/12/18 10:47 76 11/12/18 10:19 68 11/12/18 09:59 98.0 F 80 18 175/81 97 Intake and Output 11/11/18 11/12/18 11/12/18 22:59 06:59 14:59 Other: Weight 65.771 kg Results 11/12/18 10:25 11/12/18 10:25 Cardiac Enzymes 11/12/18 11/12/18 Range/Units 10:25 10:25 AST 17 (17-59) U/L Troponin I <0.012 (0.000-0.034) ng/mL Coagulation 11/12/18 Range/Units 10:25 PT 10.2 (9.0-12.0) sec APTT 24.8 (22.0-30.0) sec CBC 11/12/18 Range/Units 10:25 WBC 10.0 (3.8-10.6) k/uL RBC 5.30 (4.30-5.90) m/uL Hgb 16.5 (13.0-17.5) gm/dL Hct 48.6 (39.0-53.0) % Plt Count 271 (150-450) k/uL Comprehensive Metabolic Panel 11/12/18 Range/Units 10:25 Sodium 138 (137-145) mmol/L Potassium 4.2 (3.5-5.1) mmol/L Chloride 100 (98-107) mmol/L Carbon Dioxide 30 (22-30) mmol/L BUN 13 (9-20) mg/dL Creatinine 1.00 (0.66-1.25) mg/dL Glucose 142 H (74-99) mg/dL Calcium 9.1 (8.4-10.2) mg/dL AST 17 (17-59) U/L ALT 17 L (21-72) U/L Alkaline Phosphatase 66 (38-126) U/L Total Protein 6.7 (6.3-8.2) g/dL Albumin 4.1 (3.5-5.0) g/dL Current Medications Generic Name Dose Route Start Last Admin Trade Name Freq PRN Reason Stop Dose Admin Albuterol/Ipratropium 3 ml 11/12/18 12:00 11/12/18 14:02 Duoneb 0.5 Mg-3 Mg/3 Ml Soln INHALATION 3 ml RT-Q4H BREANA Administration Heparin Sodium/Sodium Chloride 250 mls @ 7.893 mls/hr 11/12/18 11:45 11/12/18 12:23 25,000 unit/ Sodium Chloride IV 12 units/kg/hr .Q24H BREANA 7.893 mls/hr Administration Protocol 12 UNITS/KG/HR Nitroglycerin 0.4 mg 11/12/18 11:37 Nitrostat SUBLINGUAL Q5M PRN Chest Pain Intake and Output 11/11/18 11/12/18 11/12/18 22:59 06:59 14:59 Other: Weight 65.771 kg Patient Weight 11/13/18 06:59 Weight 65.771 kg 11/12/18 10:25 11/12/18 10:25
--- NOTE | 2018-11-12 22:48 | HP ---
HISTORY AND PHYSICAL DATE OF SERVICE: 11/12/2018 CHIEF COMPLAINT: Chest pain. HISTORY OF PRESENT ILLNESS: This 58-year-old gentleman with a past medical history of COPD, history of DJD, hyperparathyroidism, not being followed by any primary care physician in the outpatient setting, complaining of chest pain. The patient reports chest pain as a tightness that started yesterday, associated with shortness of breath. The patient also has COPD also. The pain was not radiating anywhere else and the patient came to [facility] and admitted for further evaluation and treatment. The pain was mostly situated on the left side also. The patient has seen Dr. Leobardo Jaramillo from the pulmonary point of view. There is no history of fever, rigors or chills. PAST MEDICAL HISTORY: COPD, DJD, history hyperparathyroidism, parathyroidectomy. MEDICATIONS: Home medications are: Albuterol p.o. q.i.d. p.r.n. ALLERGIES: ASPIRIN, KETCHUP. FAMILY HISTORY: No history of heart disease or strokes in the family. SOCIAL HISTORY: History of smoking, continued ongoing. No history of alcohol intake. REVIEW OF SYSTEMS: ENT: No diminished hearing. No diminished vision. CARDIOVASCULAR as mentioned earlier. RESPIRATORY: As mentioned earlier. GI no nausea or vomiting. no dysuria or hematuria. Nervous system: No numbness or weakness. ALLERGY/IMMUNOLOGY: No asthma, hayfever. MUSCULOSKELETAL as mentioned earlier. HEMATOLOGY/ONCOLOGY: No history of anemia. ENDOCRINE: No history of diabetes or hypothyroidism. CONSTITUTIONAL: As mentioned earlier. DERMATOLOGY: Negative. RHEUMATOLOGY: Negative. PSYCHIATRY: As mentioned earlier. PHYSICAL EXAMINATION: Alert and oriented x3. Pulse is 64. Blood pressure 137/70, respiration 18, temperature 98.1, pulse ox 97% on room air. HEENT: Conjunctivae normal. Oral mucosa moist. NECK is no jugular venous distention. No carotid bruit. No lymph node enlargement. Cardiovascular system: S1, S2. No S3, no S4. RESPIRATORY: Breath sounds diminished in the bases. A few scattered rhonchi and crackles. ABDOMEN: Soft, nontender. No mass palpable. LEGS: No edema. No swelling. NERVOUS SYSTEM: Higher functions as mentioned earlier. Moves all four limbs. No focal motor or sensory deficits. LYMPHATICS: No lymph nodes palpable in the neck, axillae or groin. SKIN: No ulcer. No zuhair. No bleeding. JOINTS: No active deforming arthropathy. LABS: CBC within normal limits. APTT 33.9, otherwise glucose 142. EKG is noted. ASSESSMENT: 1. Chest pain. Possible unstable angina. 2. Chronic obstructive pulmonary disease. 3. History of degenerative joint disease. 4. Hyperparathyroidism status post parathyroidectomy. 5. History of nicotine dependence. RECOMMENDATIONS AND DISCUSSION: In this 58-year-old gentleman who presented with multiple medical issues, at this time, I recommend continue the current medications, continue symptomatic treatment. Continue with rule out myocardial infarction. Possible stress test in the morning. Follow closely with cardiology. Guarded prognosis because of multiple complex medical issues. Further recommendations to follow. MMODL / IJN: [id number] /
[2018-11-13] MEDS: IPRATROPIUM-ALBUTEROL 3 ML NEB INHALATION SCH ×4 (02:24→10:57)
[2018-11-13] MEDS: HEPARIN SOD,PORK IN 0.45% NACL 25,000 UNIT in 0.45% NACL 1 250ML.BAG IV SCH (05:39)
[2018-11-13 08:17] LABS: Mean Platelet Volume 6.9; Platelet Count 249 k/uL (150-450)
[2018-11-13 08:36] LABS: Cholesterol 190 mg/dL (<200); HDL Cholesterol 47 mg/dL (40-60); LDL Cholesterol,Calculated 129 mg/dL (0-99); Triglycerides 68 mg/dL (<150)
[2018-11-13] MEDS ORDERED: DOBUTamine DRIP for NUC MED 500 MG in DEXTROSE/WATER 1 250ML.BAG IV ONE (09:36)
--- NOTE | 2018-11-13 11:04 | P.PN ---
Subjective This is a pleasant 58-year-old male past medical history significant for COPD, hyperparathyroidism status post parathyroidectomy and chronic nicotine dependence. He denies prior history of coronary artery disease, hypertension, diabetes mellitus or dyslipidemia. He does not see a equipment planner in the outpatient setting. Pt is seen and examined laying flat in bed in no acute distress. He continues to feel intermittent pleuritic chest pains. No associated with exertion or activity. Mild chronic shortness of breath. Blood pressure 116 /69, heart rate 60 afebrile and maintaining oxygen saturation on room air. Laboratory data reviewed, cardiac enzymes negative x3, LDL 129, HDL 47. GENERAL: This is a 58-year-old male in no apparent distress at the time of my examination. HEENT: Head is atraumatic, normocephalic. Pupils are equal, round. Sclerae anicteric. Conjunctivae are clear. Mucous membranes of the mouth are moist. Neck is supple. There is no jugular venous distention. No carotid bruit is heard. LUNGS: Expiratory wheeze, no rales or rhonchi. Diminished bilaterally. No chest wall tenderness is noted on palpation over the left precordial region. No pain with deep breathing. HEART: Regular rate and rhythm without murmurs, rubs or gallops. S1 and S2 heard. EXTREMITIES: No evidence of peripheral edema and no calf tenderness noted. ASSESSMENT Chest pain, atypical. An acute coronary event has been ruled out. COPD Hypertension Chronic nicotine dependence History of parathyroidectomy PLAN Pain is very atypical for angina, likely related to underlying COPD. Proceed with dobutamine stress test to assess for stress induced ischemia. Echocardiogram obtained and reviewed. Diet and exercise recommended for lowering of LDL cholesterol. If stress test is normal he may be discharged home. Pain likely related to underlying COPD. Nurse Practitioner note has been reviewed, I agree with a documented findings and plan of care. Patient was seen and examined. Objective - Vital Signs Vital signs: Vital Signs Temp 98.2 F 11/13/18 07:40 Pulse 60 11/13/18 07:40 Resp 18 11/13/18 07:40 BP 116/69 11/13/18 07:40 Pulse Ox 96 11/13/18 07:40 Intake & Output 11/12/18 11/13/18 11/13/18 18:59 06:59 18:59 Intake Total 50.778 354.798 Balance 50.778 354.798 Weight 65.771 kg Intake: Intake, IV Titration 50.778 132.798 Amount Heparin Sod,Pork in 0.45% 50.778 132.798 NaCl 25,000 unit In 0.45 % NaCl 1 250ml.bag @ 12 UNITS/KG/HR 7.893 mls/hr IV .Q24H BREANA Rx#: [id number] Oral 222 Other: Voiding Method Toilet Toilet Toilet # Voids 1 - Labs CBC & Chem 7: 11/13/18 07:54 11/12/18 10:25 Labs: Abnormal Lab Results - Last 24 Hours (Table) 11/12/18 11/13/18 11/13/18 Range/Units 17:52 00:59 07:54 APTT 33.9 H 44.8 H (22.0-30.0) sec LDL Cholesterol, Calc 129 H (0-99) mg/dL 11/13/18 Range/Units 07:54 APTT 62.5 H (22.0-30.0) sec LDL Cholesterol, Calc (0-99) mg/dL
--- NOTE | 2018-11-13 12:00 | ECHOF ---
Referral Reason:chest pain MEASUREMENTS -------- HEIGHT: 170.2 cm WEIGHT: 66.2 kg BP: IVSd: 1.2 cm (0.6 - 1.1) LVIDd: 4.6 cm (3.9 - 5.3) LVPWd: 1.0 cm (0.6 - 1.1) IVSs: 1.1 cm LVIDs: 3.5 cm LVPWs: 1.3 cm LA Diam: 3.5 cm (2.7 - 3.8) Ao Diam: 3.5 cm (2.0 - 3.7) AV Cusp: 2.2 cm (1.5 - 2.6) LA Diam: 3.4 cm (2.7 - 3.8) MV EXCURSION: 27.766 mm (> 18.000) MV EF SLOPE: 147 mm/s (70 - 150) EPSS: 0.2 cm MV E Ken: 0.76 m/s MV DecT: 205 ms MV A Ken: 0.57 m/s MV E/A Ratio: 1.32 RAP: 5.00 mmHg RVSP: 7.37 mmHg TAPSE: 3.10 cm FINDINGS -------- Sinus rhythm. This was a technically good study. LV size, wall thickness and systolic function are normal, with an EF greater than 55%. The left jhoan tricular size is normal. The right ventricle is normal in size. The left atrial size is normal. The right atrial size is normal. The aortic valve is trileaflet, and appears structurally normal. No aortic stenosis or regurgitation. The mitral valve is normal. Mild mitral regurgitation is present. Mild tricuspid regurgitation present. There is no evidence of pulmonary hypertension. The right v entricular systolic pressure, as measured by Doppler, is 7.37mmHg. There is no pulmonic regurgitation present. The aortic root size is normal. There is no pericardial effusion. CONCLUSIONS -------- 1. Sinus rhythm. 2. This was a technically good study. 3. LV size, wall thickness and systolic function are normal, with an EF greater than 55%. 4. The left ventricular size is normal. 5. The left atrial size is normal. 6. The aortic valve is trileaflet, and appears structurally normal. No aortic stenosis or regurgitati on. 7. Mild mitral regurgitation is present. 8. Mild tricuspid regurgitation present. 9. There is no evidence of pulmonary hypertension. 10. There is no pulmonic regurgitation present. 11. The aortic root size is normal. 12. There is no pericardial effusion. LOGGING ASSISTANT: Elodia Richardson RDCS
[2018-11-13 12:18] VITALS: BP 122/74; PULSE 91; TEMP 97.6
--- NOTE | 2018-11-13 13:28 | ECHOS ---
STRESS ECHOCARDIOGRAM DATE OF SERVICE: 11/13/2018 INDICATIONS: Chest pain. MEDICATIONS: Albuterol. BASELINE HEART RATE: 63 BASELINE BLOOD PRESSURE: 106/50 MAXIMUM HEART RATE: 149 MAXIMUM BLOOD PRESSURE: 189/70 85% MPHR: 139 100% MPHR: 164 METS: MAXIMUM STAGE REACHED: TOTAL EXERCISE TIME: CLINICAL INFORMATION: Baseline rhythm is sinus mechanism, rate 63, normal axis, intervals, rare PVCs. Baseline blood pressure 106/50 mmHg. Patient received infusion of dobutamine per protocol reaching a peak rate of 149 beats per minute which is equal to 91% maximum predicted heart rate. Peak blood pressure 189/70 mmHg. Electrocardiograph monitoring revealed rare PACs and PVCs. There was no evidence of diagnostic ischemic ST deviation. Baseline echocardiogram revealed normal wall thickening and motion. At peak exercise, there was normal wall augmentation and thickening. CONCLUSION: 1. Normal electrocardiograph response to dobutamine infusion. 2. Normal stress echocardiogram with no evidence of stress induced ischemia. MMODL / IJN: [id number] /
--- NOTE | 2018-11-13 23:07 | DS ---
DISCHARGE SUMMARY FINAL DIAGNOSES: 1. Chest pain, possibly musculoskeletal, with a negative dobutamine stress echo. 2. Chronic obstructive pulmonary disease. 3. History of degenerative joint disease. 4. Hyperparathyroidism, status post parathyroidectomy. 5. History of nicotine dependence. DISCHARGE DISPOSITION: The patient will be discharged in stable condition with guarded prognosis. HISTORY OF PRESENT ILLNESS: This 58-year-old gentleman, not being followed by a primary physician in the outpatient setting, was admitted with chest pain. Myocardial infarction was ruled out. Cardiology performed a dobutamine stress echo which showed no evidence of any reversible ischemia. Patient improved significantly. Patient is discharged home in stable condition with guarded prognosis. On exam, vitals are stable. CARDIOVASCULAR SYSTEM: S1, S2 muffled. ABDOMEN: Soft. NERVOUS SYSTEM: No focal deficit. DISCHARGE ADVICE AND MEDICATIONS: 1. Diet is cardiac. 2. Activity limited until followup. 3. Follow up with a primary physician in 1 to 2 days. 4. Follow up with Cardiology in 2 weeks. 5. Albuterol p.r.n. Once again, the patient will be discharged in stable condition with guarded prognosis. MMODL / IJN: [id number] /
== END 2018-11-13 14:00 | disposition home or self-care (01) ==
LOC: EC 09:56 → 1SOBS 11:53
PROVIDERS: ADMIT Internal Medicine; ATTEND Internal Medicine
DX: R07.89 Other chest pain (principal); R42 Dizziness and giddiness; J44.9 Chronic obstructive pulmonary disease, unspecified; I10 Essential (primary) hypertension; E89.2 Postprocedural hypoparathyroidism; M19.90 Unspecified osteoarthritis, unspecified site; F17.210 Nicotine dependence, cigarettes, uncomplicated; Z79.899 Other long term (current) drug therapy; Z88.6 Allergy status to analgesic agent; Z91.018 Allergy to other foods
CPT/HCPCS: 96366 ×3; 96376; 96365; 99285; 36415; 94640 ×4; 93005; 93306; 93351; 85379; 83880; 80061; 80053; 83690; 83735; 84484; 85025; 85049; 85610; 85730 ×2; 71046; G0378 ×2; J1250; J1644 ×3

== ENCOUNTER 2019-04-23 11:54 | Inpatient (IN) | payer BC, MEDICAID ==
--- NOTE | 2019-04-23 12:29 | ED ---
Psych HPI - General Chief Complaint: Psychiatric Symptoms Stated Complaint: Mental health eval Time Seen by Provider: 04/23/19 12:04 Source: patient, RN notes reviewed Mode of arrival: ambulatory Limitations: no limitations - History of Present Illness Initial Comments: 59-year-old male presents emergency Department chief complaint of depression, suicidal ideation. Patient states that he's been depressed for a while states that he's been having thoughts of hurting himself. Patient has attempted to hurt himself at this time. Denies any drug or alcohol abuse has been on any antidepressants. Patient states even appointment set up tomorrow with his doctor but states that he felt worse today so present emergency department. - Related Data Home Medications Medication Instructions Recorded Confirmed Albuterol Inhaler [Ventolin Hfa 2 puff INHALATION RT-QID PRN 03/23/18 11/12/18 Inhaler] Albuterol Nebulized [Ventolin 2.5 mg INHALATION RT-Q6H PRN 11/12/18 11/12/18 Nebulized] Allergies Allergy/AdvReac Type Severity Reaction Status Date / Time aspirin Allergy Rash/Hives Verified 04/23/19 12:03 ketchup Allergy Unknown Verified 04/23/19 12:03 Review of Systems ROS Statement: Those systems with pertinent positive or pertinent negative responses have been documented in the HPI. ROS Other: All systems not noted in ROS Statement are negative. Past Medical History Past Medical History: COPD, Osteoarthritis (OA), Thyroid Disorder Additional Past Medical History / Comment(s): Hyperparathyroidism status post parathyroidectomy. History of Any Multi-Drug Resistant Organisms: None Reported Past Surgical History: No Surgical Hx Reported Additional Past Surgical History / Comment(s): parathyroidectomy and sinus surgery. Past Anesthesia/Blood Transfusion Reactions: No Reported Reaction Past Psychological History: Depression Smoking Status: Current every day smoker Past Alcohol Use History: Rare Past Drug Use History: None Reported - Past Family History Father Family Medical History: No Reported History Mother Family Medical History: No Reported History Brother(s) Family Medical History: Unable to Obtain Sister(s) Family Medical History: Unable to Obtain Son(s) Family Medical History: No Reported History General Exam Limitations: no limitations General appearance: alert, in no apparent distress Head exam: Present: atraumatic, normocephalic, normal inspection Eye exam: Present: normal appearance, PERRL, EOMI. Absent: scleral icterus, conjunctival injection, periorbital swelling ENT exam: Present: normal exam, normal oropharynx, mucous membranes moist, TM's normal bilaterally Neck exam: Present: normal inspection, full ROM. Absent: tenderness, meningismus, lymphadenopathy Respiratory exam: Present: normal lung sounds bilaterally. Absent: respiratory distress, wheezes, rales, rhonchi, stridor Cardiovascular Exam: Present: regular rate, normal rhythm, normal heart sounds. Absent: systolic murmur, diastolic murmur, rubs, gallop, clicks Neurological exam: Present: alert, oriented X3 Psychiatric exam: Present: depressed, flat affect Course Vital Signs 04/23/19 11:59 Temperature 97.5 F L Pulse Rate 84 Respiratory 20 Rate Blood Pressure 151/77 O2 Sat by Pulse 98 Oximetry Medical Decision Making - Medical Decision Making Patient evaluated by EPS and psychiatrists who recommends patient to be admitted Disposition Clinical Impression: Depression, Suicidal ideation Disposition: TRANSFER TO PSYCH HOSP/UNIT Referrals: Margaret Alvarez DO [Primary Care Provider] - 1-2 days
[2019-04-23] MEDS ORDERED: ZIPRASIDONE 20 MG VIAL IM PRN (14:42)
[2019-04-23] MEDS ORDERED: MAGNESIUM HYDROXIDE 2,400 MG/10 ML CUP PO PRN (14:42)
[2019-04-23] MEDS ORDERED: LORazepam 1 MG TAB PO PRN (14:42)
[2019-04-23] MEDS ORDERED: ACETAMINOPHEN TAB 325 MG TAB PO PRN (14:42)
[2019-04-23] MEDS ORDERED: MAG HYDROX/AL HYDROX/SIMETH 30 ML CUP PO PRN (14:42)
[2019-04-23] MEDS ORDERED: ALBUTEROL INHALER 60 PUFF/8 GM INHALER INHALATION PRN (14:48)
[2019-04-23 14:55] LABS: Amphetamine Screen,Urine Not Detected (NotDetected); Benzodiazepines Screen,Urine Not Detected (NotDetected); Cocaine Screen,Urine Not Detected (NotDetected); Methadone Screen, Urine Not Detected (NotDetected); Opiate Screen,Urine Not Detected (NotDetected); Phencyclidine Screen,Urine Not Detected (NotDetected); Tricyclic Antidepressant,Urine Not Detected (NotDetected)
[2019-04-23 14:56] LABS: Barbiturate Screen,Urine Not Detected (NotDetected); Oxycodone Screen, Urine Not Detected (NotDetected); Urn Cannabinoid Scrn Not Detected (NotDetected)
[2019-04-23] MEDS: NICOTINE 21MG/24HR PATCH TRANSDERM SCH (16:17)
[2019-04-23] MEDS: MONTELUKAST 10 MG TAB PO SCH (21:28)
[2019-04-23] MEDS: FLUTICASONE 110 MCG INHALER INHALATION SCH (22:23)
[2019-04-24 07:08] VITALS: PULSE 65; RESP 16
[2019-04-24 08:47] LABS: Basophils # (A) 0.1 k/uL (0-0.2); Basophils % (A) 1 %; Eosinophils # (A) 0.3 k/uL (0-0.7); Eosinophils % (A) 3 %; HCT 48.3 % (39.0-53.0); HGB 15.9 gm/dL (13.0-17.5); Lymphocytes # (A) 2.3 k/uL (1.0-4.8); Lymphocytes % (A) 24 %; MCH 30.9 pg (25.0-35.0); MCHC 32.9 g/dL (31.0-37.0); MCV 93.9 fL (80.0-100.0); Mean Platelet Volume 7.1; Monocytes # (A) 0.7 k/uL (0-1.0); Monocytes % (A) 7 %; Neutrophils # (A) 6.1 k/uL (1.3-7.7); Neutrophils % (A) 64 %; Platelet Count 264 k/uL (150-450); RBC 5.14 m/uL (4.30-5.90); RDW 12.3 % (11.5-15.5); WBC 9.6 k/uL (3.8-10.6)
[2019-04-24 09:08] LABS: ALT 14 U/L (4-49); AST 21 U/L (17-59); African American GFR (CKD) >90 (>60 ml/min/1.73 sqM); Albumin 3.7 g/dL (3.5-5.0); Alkaline Phosphatase 68 U/L (38-126); Anion Gap 5 mmol/L; Blood Urea Nitrogen 9 mg/dL (9-20); Calcium 8.9 mg/dL (8.4-10.2); Carbon Dioxide 27 mmol/L (22-30); Chloride 104 mmol/L (98-107); Cholesterol 189 mg/dL (<200); Glucose 88 mg/dL (74-99); HDL Cholesterol 38 mg/dL (40-60); LDL Cholesterol,Calculated 128 mg/dL (0-99); Non-African American GFR(CKD) >90 (>60 ml/min/1.73 sqM); Sodium 136 mmol/L (137-145); Total Bilirubin 0.8 mg/dL (0.2-1.3); Total Protein 6.4 g/dL (6.3-8.2); Triglycerides 116 mg/dL (<150)
[2019-04-24] MEDS: NICOTINE 21MG/24HR PATCH TRANSDERM SCH (09:16)
[2019-04-24] MEDS: FLUTICASONE 110 MCG INHALER INHALATION SCH ×2 (09:16→21:41)
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
[2019-04-24 17:08] LABS: Hemoglobin A1C 5.3 % (4.0-6.0)
[2019-04-24] MEDS ORDERED: MIRTAZAPINE 15 MG TAB PO SCH (21:00)
[2019-04-24] MEDS: MONTELUKAST 10 MG TAB PO SCH (21:41)
[2019-04-25 06:55] VITALS: BP 130/72; TEMP 98.5
[2019-04-25] MEDS: FLUTICASONE 110 MCG INHALER INHALATION SCH (10:47)
[2019-04-25] MEDS: NICOTINE 21MG/24HR PATCH TRANSDERM SCH (10:48)
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
--- NOTE | 2019-04-25 22:33 | P.CONS ---
History of Present Illness - Reason for Consult Consult date: 04/24/19 medical management - Chief Complaint suicidal ideation - History of Present Illness Abdirashid Oneill is a 59 yo M with PMH of COPD, no previous history of depression who presented to [facility] with feelings of hopelessness, worthlessness, and suicidal ideation. He states his girlfriend has been contacting her previous boyfriend and pt is concerned she is having an affair. He states that this has made him suicidal. He denies any previous history of depression and has never been on psychiatric medication. He denies any physical symptoms today including chest pain, shortness of breath, fever, chills. Review of Systems All systems: negative Constitutional: Denies chills, Denies fever Eyes: denies blurred vision, denies pain Ears, nose, mouth and throat: Denies headache, Denies sore throat Cardiovascular: Denies chest pain, Denies shortness of breath Respiratory: Denies cough Gastrointestinal: Denies abdominal pain, Denies diarrhea, Denies nausea, Denies vomiting Musculoskeletal: Denies myalgias Integumentary: Denies pruritus, Denies rash Neurological: Denies numbness, Denies weakness Psychiatric: Denies anxiety, Denies depression Endocrine: Denies fatigue, Denies weight change Past Medical History Past Medical History: COPD, Osteoarthritis (OA), Thyroid Disorder Additional Past Medical History / Comment(s): Hyperparathyroidism status post parathyroidectomy. History of Any Multi-Drug Resistant Organisms: None Reported Past Surgical History: No Surgical Hx Reported Additional Past Surgical History / Comment(s): parathyroidectomy and sinus surgery. Past Anesthesia/Blood Transfusion Reactions: No Reported Reaction Past Psychological History: Depression Smoking Status: Current every day smoker Past Alcohol Use History: Rare Additional Past Alcohol Use History / Comment(s): started smoking at age 27(198 8) smokes 1 ppd Past Drug Use History: None Reported - Past Family History Father Family Medical History: No Reported History Mother Family Medical History: No Reported History Brother(s) Family Medical History: Unable to Obtain Sister(s) Family Medical History: Unable to Obtain Son(s) Family Medical History: No Reported History Medications and Allergies Home Medications Medication Instructions Recorded Confirmed Type Albuterol Sulfate [Proair Hfa] 2 puff INHALATION RT-QID PRN 04/23/19 04/23/19 History Beclomethasone Dip 80 Mcg/Puff 2 puff INHALATION RT-BID 04/23/19 04/23/19 History [Qvar 80 mcg] Ipratropium-Albuterol Nebulize 3 ml INHALATION RT-Q6H PRN 04/23/19 04/23/19 History [Duoneb 0.5 mg-3 mg/3 ml Soln] Montelukast [Singulair] 10 mg PO HS 04/23/19 04/23/19 History Mirtazapine [Remeron] 15 mg PO HS #30 tab 04/25/19 Rx Allergies Allergy/AdvReac Type Severity Reaction Status Date / Time aspirin Allergy Rash/Hives Verified 04/23/19 17:10 ketchup Allergy Unknown Verified 04/23/19 17:10 Physical Exam Vitals: Vital Signs Temp Pulse Resp BP 04/25/19 06:54 98.5 F 65 16 130/72 General: well nourished, well developed, NAD. Vitals reviewed Eyes: PERRL, EOMI, conjunctiva normal HENT: normocephalic, mucus membranes moist Neck: supple, no JVD Lungs: normal respiratory effort, no rales. Minimal wheezing CV: Regular rate and rhythm, no murmur. Peripheral pulses 2+ Abdomen: soft, nondistended, no organomegaly Lymph: no cervical or axillary LAD Skin: warm and dry. Neuro: A&Ox3, depressed mood, normal affect Results CBC & Chem 7: 04/24/19 07:39 04/24/19 07:39 Assessment and Plan (1) COPD (chronic obstructive pulmonary disease) Status: Acute Code(s): J44.9 - CHRONIC OBSTRUCTIVE PULMONARY DISEASE, UNSPECIFIED SNOMED Code(s): 05288395 (2) Alcohol use disorder, severe, in sustained remission Status: Chronic Priority: Low Code(s): F10.21 - ALCOHOL DEPENDENCE, IN REM ISSION SNOMED Code(s): 06263818 (3) Partner relationship problem Status: Chronic Priority: Medium Code(s): Z63.0 - PROBLEMS IN RELATIONSHIP WITH SPOUSE OR PARTNER SNOMED Code(s): 1933500242759 (4) Suicidal ideation Status: Resolved Priority: Low Code(s): R45.851 - SUICIDAL IDEATIONS SNOMED Code(s): 6072267 Plan: 1. Suicidal ideation. Acute stress reaction. Management per psychiatry 2. COPD. continue singulair, inhaler 3. Tobacco use disorder. Nicotine patch
== END 2019-04-25 16:22 | disposition home or self-care (01) | DRG 881 ==
LOC: EC 11:54 → 3MHU 14:26
PROVIDERS: ADMIT Psychiatry & Neurology Psychiatry; ATTEND Psychiatry & Neurology Psychiatry
DX: F32.9 Major depressive disorder, single episode, unspecified (principal); R45.851 Suicidal ideations; J44.9 Chronic obstructive pulmonary disease, unspecified; M19.90 Unspecified osteoarthritis, unspecified site; E89.0 Postprocedural hypothyroidism; F17.210 Nicotine dependence, cigarettes, uncomplicated; F51.04 Psychophysiologic insomnia; F10.21 Alcohol dependence, in remission; F43.0 Acute stress reaction; Z71.6 Tobacco abuse counseling; Z79.899 Other long term (current) drug therapy; Z88.6 Allergy status to analgesic agent; Z91.018 Allergy to other foods
CPT/HCPCS: 80053; 80061; 80306; 82075; 83036; 84443; 85025; 99284

== ENCOUNTER 2019-12-21 22:16 | Emergency (ER) | payer BC, MEDICAID, OTHER ==
[2019-12-21 22:23] VITALS: BP 137/78; PULSE 83; RESP 18; TEMP 98
[2019-12-21] MEDS ORDERED: DIPH,PERTUS(ACELL)TETVAC-LF 0.5 ML VIAL IM ONE (22:34)
[2019-12-21] MEDS ORDERED: CEPHALEXIN 500MG STARTER PACK 4 CAP BTL PO STA (22:34)
--- NOTE | 2019-12-21 23:01 | ED ---
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 He attempted to use a needle to get it out but was unable to remove any foreign materials. He has subsequently developed some redness and swelling in the area was concerned that he may need antibiotics. - Related Data Home Medications Medication Instructions Recorded Confirmed Albuterol Sulfate [Proair Hfa] 2 puff INHALATION RT-QID PRN 04/23/19 04/23/19 Beclomethasone Dip 80 Mcg/Puff 2 puff INHALATION RT-BID 04/23/19 04/23/19 [Qvar 80 mcg] Ipratropium-Albuterol Nebulize 3 ml INHALATION RT-Q6H PRN 04/23/19 04/23/19 [Duoneb 0.5 mg-3 mg/3 ml Soln] Montelukast [Singulair] 10 mg PO HS 04/23/19 04/23/19 Previous Rx's Medication Instructions Recorded Mirtazapine [Remeron] 15 mg PO HS #30 tab 04/25/19 Cephalexin [Keflex] 500 mg PO Q6HR 7 Days #28 cap 12/21/19 Allergies Allergy/AdvReac Type Severity Reaction Status Date / Time aspirin Allergy Rash/Hives Verified 12/21/19 22:23 ketchup Allergy Unknown Verified 12/21/19 22:23 Review of Systems ROS Statement: Those systems with pertinent positive or pertinent negative responses have been documented in the HPI. ROS Other: All systems not noted in ROS Statement are negative. Past Medical History Past Medical History: COPD, Osteoarthritis (OA), Thyroid Disorder Additional Past Medical History / Comment(s): Hyperparathyroidism status post parathyroidectomy. History of Any Multi-Drug Resistant Organisms: None Reported Past Surgical History: No Surgical Hx Reported Additional Past Surgical History / Comment(s): parathyroidectomy and sinus surgery. Past Anesthesia/Blood Transfusion Reactions: No Reported Reaction Past Psychological History: Depression Smoking Status: Current every day smoker Past Alcohol Use History: Rare Past Drug Use History: None Reported - Past Family History Father Family Medical History: No Reported History Mother Family Medical History: No Reported History Brother(s) Family Medical History: Unable to Obtain Sister(s) Family Medical History: Unable to Obtain Son(s) Family Medical History: No Reported History General Exam - General Exam Comments Initial Comments: Physical Exam GENERAL: Patient is well-developed and well-nourished. Patient is nontoxic and well-hydrated and is in no distress. HENT: Normocephalic, Atraumatic. EYES: PERRL, EOMI PULMONARY: Unlabored respirations. CARDIOVASCULAR: RRR Warm and well perfused extremities ABDOMEN: Non-distended SKIN: Small open wound between third and fourth digit, no large abscess, no obvious foreign body. Skin color changes consistent with tobacco abuse : Deferred NEUROLOGIC: Alert and oriented Normal speech Normal gait MUSCULOSKELETAL: Moving all extremities with no apparent injury PSYCHIATRIC: No SI/HI Limitations: no limitations Course Vital Signs 12/21/19 22:21 Temperature 98.0 F Pulse Rate 83 Respiratory 18 Rate Blood Pressure 137/78 O2 Sat by Pulse 99 Oximetry Medical Decision Making - Medical Decision Making Patient was seen and evaluated, history is obtained from the patient Patient concerned he may have a sliver of metal in his finger x-rays were obtained and no foreign objects identifiable Tetanus was updated Patient does have a very small scab in the area where he attempted to open the area with a needle, there are some surrounding erythema he will be placed on Keflex, advised to keep the area clean and dry First dose of Keflex given in the ER Patient will be discharged home with prescription for Keflex return parameters were discussed patient discharged in stable condition. Disposition Clinical Impression: Cellulitis of right hand Disposition: HOME SELF-CARE Condition: Stable Additional Instructions: Take antibiotics, keep the hand clean and dry, you can soak hte area in warm soapy water 3x daily Return to the ER for any acute worsening Prescriptions: Cephalexin [Keflex] 500 mg PO Q6HR 7 Days #28 cap Is patient prescribed a controlled substance at d/c from ED?: No Referrals: Fernando Kim MD [Primary Care Provider] - 1-2 days
--- NOTE | 2019-12-21 23:06 | XR ---
EXAMINATION TYPE: XR hand complete RT DATE OF EXAM: 12/21/2019 COMPARISON: NONE HISTORY: Pain TECHNIQUE: 3 views FINDINGS: Metacarpals are intact. There is deformity of the fifth metacarpal consistent with old heal ed fracture. I see no acute fracture. There is no evidence of radiopaque foreign body. IMPRESSION: No acute bony abnormality. No evidence of a foreign body.
== END 2019-12-21 23:28 | disposition home or self-care (01) ==
LOC: EC 22:16
DX: L03.113 Cellulitis of right upper limb (principal); S61.401A Unspecified open wound of right hand, initial encounter; J44.9 Chronic obstructive pulmonary disease, unspecified; F17.200 Nicotine dependence, unspecified, uncomplicated; Z23 Encounter for immunization; Z79.51 Long term (current) use of inhaled steroids; Z88.6 Allergy status to analgesic agent; Z91.018 Allergy to other foods; W45.8XXA Other foreign body or object entering through skin, initial encounter; Y92.69 Other specified industrial and construction area as the place of occurrence of the external cause; Y99.0 Civilian activity done for income or pay
CPT/HCPCS: 90471; 90715; 99283

== ENCOUNTER 2020-05-10 01:51 | Emergency (ER) | payer BC, OTHER ==
[2020-05-10 02:10] VITALS: BP 131/83; PULSE 77; RESP 18; TEMP 97.7
[2020-05-10] MEDS ORDERED: TETRACAINE 0.5% OPHTH (PF) DROPS 4 ML BTL LEFT EYE STA (03:30)
[2020-05-10] MEDS ORDERED: FLUORESCEIN STRIPS 1 MG STRIP LEFT EYE ONE (03:30)
[2020-05-10] MEDS ORDERED: ERYTHROMYCIN 5 MG/GM OPHTH OINT 3.5 GM TUBE LEFT EYE STA (04:42)
--- NOTE | 2020-05-10 04:43 | ED ---
Eye Problem HPI - General Chief complaint: Eye Problems Stated complaint: Eye pain, headache Time Seen by Provider: 05/10/20 03:29 Source: patient Mode of arrival: ambulatory Limitations: no limitations - History of Present Illness MD chief complaint: eye pain Onset/Timin -: days(s) Onset Description: sudden Location: left eye Place: work If Injury: none Eye Symptoms: burning, foreign body sensation Severity: mild Consistency: constant Associated Symptoms: none Treatments Prior to Arrival: none - Related Data Patient Tetanus UTD: Yes Home Medications Medication Instructions Recorded Confirmed Albuterol Sulfate [Proair Hfa] 2 puff INHALATION RT-QID PRN 04/23/19 04/23/19 Beclomethasone Dip 80 Mcg/Puff 2 puff INHALATION RT-BID 04/23/19 04/23/19 [Qvar 80 mcg] Ipratropium-Albuterol Nebulize 3 ml INHALATION RT-Q6H PRN 04/23/19 04/23/19 [Duoneb 0.5 mg-3 mg/3 ml Soln] Montelukast [Singulair] 10 mg PO HS 04/23/19 04/23/19 Previous Rx's Medication Instructions Recorded Mirtazapine [Remeron] 15 mg PO HS #30 tab 04/25/19 Cephalexin [Keflex] 500 mg PO Q6HR 7 Days #28 cap 12/21/19 Allergies Allergy/AdvReac Type Severity Reaction Status Date / Time aspirin Allergy Rash/Hives Verified 05/10/20 02:10 ketchup Allergy Unknown Verified 05/10/20 02:10 Review of Systems ROS Statement: Those systems with pertinent positive or pertinent negative responses have been documented in the HPI. ROS Other: All systems not noted in ROS Statement are negative. Constitutional: Denies: fever Eyes: Reports: eye pain. Denies: eye discharge, vision change ENT: Denies: congestion Respiratory: Denies: cough, dyspnea Skin: Denies: rash Neurological: Denies: headache, weakness, numbness, paresthesias Past Medical History Past Medical History: COPD, Osteoarthritis (OA), Thyroid Disorder Additional Past Medical History / Comment(s): Hyperparathyroidism status post p arathyroidectomy. History of Any Multi-Drug Resistant Organisms: None Reported Past Surgical History: No Surgical Hx Reported Additional Past Surgical History / Comment(s): parathyroidectomy and sinus surgery. Past Anesthesia/Blood Transfusion Reactions: No Reported Reaction Past Psychological History: Depression Smoking Status: Current every day smoker Past Alcohol Use History: Rare Past Drug Use History: None Reported - Past Family History Father Family Medical History: No Reported History Mother Family Medical History: No Reported History Brother(s) Family Medical History: Unable to Obtain Sister(s) Family Medical History: Unable to Obtain Son(s) Family Medical History: No Reported History General Exam Limitations: no limitations General appearance: alert, in no apparent distress Head exam: Present: atraumatic, normocephalic Eye exam: Present: PERRL, EOMI. Absent: scleral icterus, conjunctival injection, nystagmus ENT exam: Present: normal oropharynx Respiratory exam: Present: normal lung sounds bilaterally Cardiovascular Exam: Present: regular rate, normal rhythm, normal heart sounds. Absent: systolic murmur, diastolic murmur, rubs, gallop Skin exam: Present: warm, dry, intact, normal color. Absent: rash Course Vital Signs 05/10/20 02:07 Temperature 97.7 F Pulse Rate 77 Respiratory 18 Rate Blood Pressure 131/83 O2 Sat by Pulse 96 Oximetry Medical Decision Making - Medical Decision Making Intraocular pressure checked with the iCare device and is found to be normal at 15. There is no injection, corneal clouding or other evidence of elevated intraocular pressure Fluorescein drop instilled and there is abrasion at the approximately 4:30 position of the cornea. Patient did have resolution of symptoms with the topical anesthetic. We discussed appropriate further care and follow-up. Disposition Clinical Impression: Corneal abrasion Disposition: HOME SELF-CARE Condition: Good Instructions (If sedation given, give patient instructions): Corneal Abrasion (ED) Is patient prescribed a controlled substance at d/c from ED?: No Referrals: Margaret Alvarez DO [Primary Care Provider] - 1-2 days Jero Hinds MD [STAFF PHYSICIAN] - 1-2 days
== END 2020-05-10 05:12 | disposition home or self-care (01) ==
LOC: EC 01:51
DX: S05.02XA Injury of conjunctiva and corneal abrasion without foreign body, left eye, initial encounter (principal); F17.200 Nicotine dependence, unspecified, uncomplicated; J44.9 Chronic obstructive pulmonary disease, unspecified; M19.90 Unspecified osteoarthritis, unspecified site; Z79.51 Long term (current) use of inhaled steroids; X58.XXXA Exposure to other specified factors, initial encounter
CPT/HCPCS: 99283

== ENCOUNTER 2020-06-14 09:03 | Emergency (ER) | payer BC, OTHER ==
[2020-06-14 09:23] VITALS: RESP 18; TEMP 97.6
[2020-06-14] MEDS ORDERED: MORPHINE SULFATE 4 MG/ML SYRINGE IM STA (09:23)
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
[2020-06-14 11:40] VITALS: BP 137/93; PULSE 73
== END 2020-06-14 11:38 | disposition home or self-care (01) ==
LOC: EC 09:03
DX: S16.1XXA Strain of muscle, fascia and tendon at neck level, initial encounter (principal); J44.9 Chronic obstructive pulmonary disease, unspecified; F17.200 Nicotine dependence, unspecified, uncomplicated; M19.90 Unspecified osteoarthritis, unspecified site; F32.9 Major depressive disorder, single episode, unspecified; Z79.899 Other long term (current) drug therapy; V89.2XXA Person injured in unspecified motor-vehicle accident, traffic, initial encounter; Y92.410 Unspecified street and highway as the place of occurrence of the external cause
CPT/HCPCS: 73030; 73562; 71046; 72125; 70450; 99284; 96372; J2270

== ENCOUNTER → 2020-07-24 | Outpatient (CLI) | payer OTHER ==
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
== END | disposition home or self-care (01) ==
LOC: RADMRIMAIN 12:10
PROVIDERS: ATTEND Family Medicine
DX: M50.221 Other cervical disc displacement at C4-C5 level (principal); M48.02 Spinal stenosis, cervical region
CPT/HCPCS: 72141

== ENCOUNTER 2020-12-30 09:09 | Day surgery (SDC) | payer BC, OTHER ==
[2020-12-28 12:39] VITALS: BMI 22.7
[~2020-12-30 09:09] MED LIST: LACTATED RINGERS 1,000 ML IV SCH
[2020-12-30 09:17] VITALS: TEMP 98.5
[2020-12-30] MEDS ORDERED: LACTATED RINGERS 1,000 ML IV ONE (09:19)
[2020-12-30] MEDS ORDERED: MIDAZOLAM 2 MG/2 ML VIAL ONE (09:58)
[2020-12-30] MEDS ORDERED: fentaNYL (PF) 50 MCG/ML 2 ML AMP ONE (09:58)
[2020-12-30] MEDS ORDERED: IOPAMIDOL M200 10 ML VIAL ONE (09:58)
[2020-12-30] MEDS ORDERED: DEXAMETHASONE SOD PHOSPHATE 10 MG/ML 1 ML VIAL ONE (09:58)
--- NOTE | 2020-12-30 10:13 | P.PCN ---
Date of Procedure: 12/30/20 Surgeon: Jackelyn Mo Pathology: none sent Condition: stable Disposition: PACU Description of Procedure: PROCEDURE 1. Cervical epidural steroid injection under fluoroscopic guidance, C6-7 left paramedian approach. 2. Cervical epidurogram. : PREOPERATIVE DIAGNOSIS: Cervical radiculopathy, cervical spondylosis without myelopathy POSTOPERATIVE DIAGNOSIS: : Same as above ANESTHESIA: Local anesthesia with 1% lidocaine and IV moderate conscious sedation with Versed and Fentanyl . EBL 0 PROCEDURE INDICATION: The patient with neck pain and radiculopathy unresponsive to conservative treatment consents for procedure. PROCEDURE DESCRIPTION / TECHNIQUE: The patient was seen and identified in the preoperative area. Risks, benefits, complications, including but not limited to infections ,bleeding , allergic reactions to the medications ,and not complete pain relief, and alternatives were discussed with the patient, the patient agreed to proceed with the procedure and signed the consent. Patient was taken to the OR and time out was completed. The patient was placed in the prone position on the procedure table. A pillow was placed under the patients chest to increase the flexion of the cervical spine . The cervical area was prepped and draped in the usual sterile fashion. Vital signs were closely monitored during the procedure. Conscious sedation was used during the procedure to decrease patients anxiety. Using anterior-posterior fluoroscopy, the C7-T1 interlaminar space was identified and the skin over this site was marked and then infiltrated with 1% lidocaine subcutaneously. Subsequently, a 20-gauge 3-1/2-inch Tuohy epidural needle was inserted and advanced toward the epidural space by means of loss of resistance to air technique and guided by AP and lateral fluoroscopy. The needle tip contacted the lamina of T1 vertebra first, then it was walked off bone and into the epidural space using the loss of to air and fluoroscopic guidance to identify the epidural space. The correct needle position in the epidural space was verified with the injection of 1 mL of the water soluble contrast dye Isovue and observing an excellent epidurogram with the epidural spread of the dye, after negative aspiration for blood and CSF and in the absence of paresthesias. Again after negative aspiration, 20 mg Decadron and 1 ml of preservative free Normal Saline solution was injected and a washout of epidurogram was seen. Needle was withdrawn intact, skin was cleansed, and bandages were applied. A copy of the needle placement picture was saved to the fluoroscopy machine.
[2020-12-30] MEDS ORDERED: IV FLUID CONTINUATION 800 ML IV ONE (10:16)
[2020-12-30 10:18] VITALS: RESP 16
--- NOTE | 2020-12-30 10:21 | FL ---
EXAMINATION TYPE: FL guided pain mgmt statistic DATE OF EXAM: 12/30/2020 CLINICAL HISTORY: Neck pain. TECHNIQUE: Fluoroscopy. COMPARISON: None. FINDINGS: Fluoroscopic guidance was provided during pain relief procedure performed by Dr. Mo . A total of 4 seconds of fluoroscopic time was utilized during the procedure and 1 spot images are a cquired. Single image acquired shows needle localization near level of the cervical thoracic junctio n. IMPRESSION: As Above.
[2020-12-30 10:46] VITALS: BP 129/76; PULSE 69
== END 2020-12-30 10:52 | disposition home or self-care (01) ==
LOC: ORPAIN 09:09
PROVIDERS: ATTEND Anesthesiology
DX: M47.22 Other spondylosis with radiculopathy, cervical region (principal); F41.9 Anxiety disorder, unspecified
CPT/HCPCS: 62321; 64490; J2250; J1100; J3010; Q9966

== ENCOUNTER 2021-02-08 07:05 | Day surgery (SDC) | payer OTHER, BC ==
[2021-02-07 10:05] VITALS: BMI 22.4
[2021-02-08 07:41] VITALS: TEMP 96.4
[2021-02-08] MEDS ORDERED: IOPAMIDOL M200 10 ML VIAL ONE (07:54)
[2021-02-08] MEDS ORDERED: MIDAZOLAM 2 MG/2 ML VIAL ONE (07:54)
[2021-02-08] MEDS ORDERED: DEXAMETHASONE SOD PHOSPHATE 10 MG/ML 1 ML VIAL ONE (07:54)
[2021-02-08] MEDS ORDERED: .fentaNYL (PF) 50 MCG/ML 2 ML AMP ONE (07:54)
--- NOTE | 2021-02-08 08:06 | P.PCN ---
Date of Procedure: 02/08/21 Surgeon: Jackelyn Mo Pathology: none sent Condition: stable Disposition: PACU Description of Procedure: PROCEDURE 1. Cervical epidural steroid injection under fluoroscopic guidance, C7-T1 left paramedian approach. 2. Cervical epidurogram. : PREOPERATIVE DIAGNOSIS: Cervical radiculopathy, cervical spondylosis without myelopathy POSTOPERATIVE DIAGNOSIS: : Same as above ANESTHESIA: Local anesthesia with 1% lidocaine and IV moderate conscious sedation with Versed and Fentanyl . EBL 0 PROCEDURE INDICATION: The patient with neck pain and radiculopathy unresponsive to conservative treatment consents for procedure. PROCEDURE DESCRIPTION / TECHNIQUE: The patient was seen and identified in the preoperative area. Risks, benefits, complications, including but not limited to infections ,bleeding , allergic reactions to the medications ,and not complete pain relief, and alternatives were discussed with the patient, the patient agreed to proceed with the procedure and signed the consent. Patient was taken to the OR and time out was completed. The patient was placed in the prone position on the procedure table. A pillow was placed under the patients chest to increase the flexion of the cervical spine . The cervical area was prepped and draped in the usual sterile fashion. Vital signs were closely monitored during the procedure. Conscious sedation was used during the procedure to decrease patients anxiety. Using anterior-posterior fluoroscopy, the C7-T1 interlaminar space was identified and the skin over this site was marked and then infiltrated with 1% lidocaine subcutaneously. Subsequently, a 20-gauge 3-1/2-inch Tuohy epidural needle was inserted and advanced toward the epidural space by means of loss of resistance to air technique and guided by AP and lateral fluoroscopy. The needle tip contacted the lamina of T1 vertebra first, then it was walked off bone and into the epidural space using the loss of to air and fluoroscopic guidance to identify the epidural space. The correct needle position in the epidural space was verified with the injection of 1 mL of the water soluble contrast dye Isovue and observing an excellent epidurogram with the epidural spread of the dye, after negative aspiration for blood and CSF and in the absence of paresthesias. Again after negative aspiration, a 2 ml mixture containing 10 mg of Decadron and 1 ml of preservative free Normal Saline solution was injected and a washout of epidurogram was seen. Needle was withdrawn intact, skin was cleansed, and bandages were applied. A copy of the needle placement picture was saved to the fluoroscopy machine.
[2021-02-08] MEDS ORDERED: IV FLUID CONTINUATION 1,000 ML IV ONE (08:10)
[2021-02-08 08:15] VITALS: RESP 16
[2021-02-08 08:25] VITALS: BP 136/76; PULSE 77
--- NOTE | 2021-02-08 08:53 | FL ---
EXAMINATION TYPE: FL guided pain mgmt statistic DATE OF EXAM: 02/08/2021 HISTORY: Fluoroscopy time 3 seconds of fluoroscopy provided. IMPRESSION: 1. Fluoroscopy time.
== END 2021-02-08 08:53 | disposition home or self-care (01) ==
LOC: ORPAIN 07:05
PROVIDERS: ATTEND Anesthesiology
DX: M47.22 Other spondylosis with radiculopathy, cervical region (principal); Z88.6 Allergy status to analgesic agent
CPT/HCPCS: 62321; J2250; J1100; J3010; Q9966; 99152

== ENCOUNTER 2021-05-23 17:32 | Emergency (ER) | payer OTHER ==
[2021-05-23 17:45] VITALS: TEMP 97.6
[2021-05-23] MEDS ORDERED: ORPHENADRINE 30 MG/ML 2 ML VIAL IM STA (21:37)
[2021-05-23] MEDS ORDERED: ONDANSETRON ODT 4 MG TAB PO STA (21:40)
[2021-05-23] MEDS ORDERED: HYDROmorphone 1 MG/ML 1 ML SYRINGE IM STA (21:40)
--- NOTE | 2021-05-23 21:46 | ED ---
General Adult HPI - General Chief complaint: Back Pain/Injury Stated complaint: Back pain Time Seen by Provider: 05/23/21 21:05 Source: patient, RN notes reviewed Mode of arrival: ambulatory Limitations: no limitations - History of Present Illness Initial comments: 61-year-old male presents to the emergency department for evaluation of low back pain. Patient reports a history of chronic low back pain for which he used to take [place] daily. States he had a fall earlier today and has had worsening pain with position change intermittently since. Describes spasming discomfort as well. Denies numbness or tingling to the lower extremities, foot drop, or saddle anesthesia. - Related Data Home Medications Medication Instructions Recorded Confirmed Cyclobenzaprine [Flexeril] 10 mg PO DAILY 05/23/21 05/23/21 Gabapentin [Neurontin] 300 mg PO DAILY 05/23/21 05/23/21 Meloxicam [Mobic] 15 mg PO DAILY 05/23/21 05/23/21 Montelukast Sodium [Singulair] 10 mg PO DAILY 05/23/21 05/23/21 Allergies Allergy/AdvReac Type Severity Reaction Status Date / Time aspirin Allergy Rash/Hives Verified 05/23/21 22:29 ketchup Allergy Rash/Hives Verified 05/23/21 22:29 Review of Systems ROS Statement: Those systems with pertinent positive or pertinent negative responses have been documented in the HPI. ROS Other: All systems not noted in ROS Statement are negative. Past Medical History Past Medical History: COPD, Hypertension, Osteoarthritis (OA), Thyroid Disorder Additional Past Medical History / Comment(s): Hyperparathyroidism status post parathyroidectomy. History of Any Multi-Drug Resistant Organisms: None Reported Past Surgical History: No Surgical Hx Reported Additional Past Surgical History / Comment(s): parathyroidectomy and sinus surgery. PAIN CLINIC PROCEDURES Past Anesthesia/Blood Transfusion Reactions: No Reported Reaction Past Psychological History: Depression Smoking Status: Current every day smoker Past Alcohol Use History: None Reported Past Drug Use History: None Reported - Past Family History Father Family Medical History: No Reported History Mother Family Medical History: No Reported History Brother(s) Family Medical History: Unable to Obtain Sister(s) Family Medical History: Unable to Obtain Son(s) Family Medical History: No Reported History General Exam Limitations: no limitations (Well-developed, well-nourished male in no acute distress. Initial temperature 97.6, pulse 64, respirations 20, blood pressure 133/80, pulse ox 98% on room air.) General appearance: alert, in no apparent distress Respiratory exam: Present: normal lung sounds bilaterally. Absent: respiratory distress, wheezes, rales, rhonchi, stridor, chest wall tenderness Cardiovascular Exam: Present: regular rate, normal rhythm, normal heart sounds. Absent: systolic murmur, diastolic murmur, rubs, gallop, clicks GI/Abdominal exam: Present: soft, normal bowel sounds. Absent: distended, tenderness, guarding, rebound, rigid Back exam: Present: normal inspection, muscle spasm (spasmodic nature of pain with position change), other (observed patient moving freely and changing position without difficulty, however, patient verbalizes discomfort with position change.). Absent: full ROM, tenderness, CVA tenderness (R), CVA tenderness (L), paraspinal tenderness, vertebral tenderness Neurological exam: Present: alert, oriented X3, CN II-XII intact, normal gait Psychiatric exam: Present: normal affect, normal mood Skin exam: Present: warm, dry, intact, normal color Course Vital Signs 05/23/21 05/23/21 05/24/21 17:43 23:08 00:20 Temperature 97.6 F Pulse Rate 64 73 73 Respiratory 20 22 18 Rate Blood Pressure 133/80 135/69 132/87 O2 Sat by Pulse 98 98 96 Oximetry - Reevaluation(s) Reevaluation #1: 05/23/21 22:50 Upon reassessment, patient is asleep and appears to be resting comfortably. When awakened, patient states he has not received his pain medication yet. Reports feeling very uncomfortable. 05/24/21 00:00 Upon reassessment, patient is asleep and continues to be resting comfortably. Upon awakening, patient reports improvement in pain level. Patient will be discharged home to follow up with PCP and back specialist. Medical Decision Making - Medical Decision Making 61-year-old male with a history of chronic neck and back pain presents to the emergency department for evaluation of low back pain s/p fall earlier today. Upon exam, patient appears to be resting comfortably and in not acute distress. He is observed moving all extremities freely and repositioning without difficulty. SLR negative. Patient appears to have spasmodic pain when repositioning upright. He is able to ambulate without difficulty. No saddle anesthesia, numbness or tingling to extremities, or foot trauma. Patient states he has been his PCP for this same complaint. Had been taking [place] though is no longer prescribe this medication. States he was supposed to see Dr. Dickinson for his back, however missed the appointment. Patient is taking Neurontin, Flexeril, and Motrin as prescribed. He will be discharged home to continue his home medication regimen and to follow up with his PCP and DR. Dickinson for further evaluation and treatment. Return parameters were discussed in detail. Patient verbalizes understanding and agrees with this plan. Attending: Leann. - Radiology Data Radiology results: report reviewed, image reviewed X-ray of the lumbar spine was obtained. Report was reviewed in its entirety. Impression per Dr. Mullen is mild spondylytic changes. No fracture seen no change compared to old exam. Disposition Clinical Impression: Exacerbation of chronic back pain Disposition: HOME SELF-CARE Condition: Stable Instructions (If sedation given, give patient instructions): Back Pain (ED) Additional Instructions: Follow up care is important- please call to reschedule your missed appointment with Dr. Dickinson. Continue your home medication regimen; you are already on an anti-inflammatory pain medication, muscle relaxer, and neurontin. Maintain mobility. May apply heat or ice. Return to the emergency department with any new, worsening, or concerning symptoms. Is patient prescribed a controlled substance at d/c from ED?: No Referrals: Fernando Kim MD [Primary Care Provider] - 1-2 days Time of Disposition: 00:15
--- NOTE | 2021-05-23 22:26 | XR ---
EXAMINATION TYPE: XR lumbar spine 2 or 3V DATE OF EXAM: 05/23/2021 COMPARISON: 09/23/2015 HISTORY: Back pain TECHNIQUE: 3 views FINDINGS: Lumbar vertebra have normal alignment. There is minor spurring at L4-5 and L5-S1. No signif icant compression deformity. Sacroiliac joints are intact. IMPRESSION: Mild spondylotic changes. No fracture seen. No change compared to old exam.
[2021-05-23] MEDS ORDERED: HYDROcodone/APAP 7.5-325MG 1 EACH TAB PO ONE (23:01)
[2021-05-23 23:10] VITALS: PULSE 73
[2021-05-24 00:21] VITALS: BP 132/87; RESP 18
== END 2021-05-24 00:23 | disposition home or self-care (01) ==
LOC: EC 17:32
DX: M47.816 Spondylosis without myelopathy or radiculopathy, lumbar region (principal); G89.29 Other chronic pain; J44.9 Chronic obstructive pulmonary disease, unspecified; I10 Essential (primary) hypertension; M19.90 Unspecified osteoarthritis, unspecified site; E07.9 Disorder of thyroid, unspecified; F32.A Depression, unspecified; F17.200 Nicotine dependence, unspecified, uncomplicated
CPT/HCPCS: 72100; 99283

== ENCOUNTER → 2022-03-03 | Outpatient (CLI) | payer BC, OTHER ==
--- NOTE | 2022-03-05 18:28 | MR ---
MRI CERVICAL SPINE: CLINICAL HISTORY: Neck pain, headaches. spondylosis with radiculopathy. TECHNIQUE: Multiplanar, multisequence imaging of the cervical spine is performed without IV contrast. COMPARISON: MRI cervical spine July 24, 2020. Cervical spine x-ray February 13, 2022. FINDINGS: Sagittal images of the cervical spine show the craniocervical junction to remain within nor mal limits. The cervical and upper thoracic spinal cord is normal in course, caliber, and signal. Gr zeenat 1 retrolisthesis C3 on C4 and C5 on C6 along with to lesser degree C6 on C7 is redemonstrated. T he vertebral body heights are normal. Moderate disc space narrowing C3-C4 and C5-C6 levels with heter ogeneous Modic type I and type II endplate changes is seen. Mild/moderate disc space narrowing C6-C7 level. Axial images show C2-C3 level to remain within normal limits. Axial images at C3-C4 level redemonstrate spondylolisthesis with broad-based posterior disc protrusio n and uncovertebral facet degenerative changes effacing anterior thecal sac and causing moderate to s evere left greater than right bilateral neural foraminal narrowing. No significant change from prior. Axial images at C4-C5 level showed tiny central disc protrusion minimally effacing the anterior theca l sac on image 33 and uncovertebral facet degenerative changes causing asymmetric mild right-sided ne ural foraminal narrowing. No significant change from prior. Axial images at C5-C6 level show subtle spondylolisthesis with broad-based posterior disc protrusion effacing the anterior thecal sac and causing mild to moderate left greater than right bilateral neura l foraminal narrowing. Axial images at C6-C7 level shows subtle spondylolisthesis with posterior spur disc complex minimally effaces the anterior thecal sac and causing mild left-sided neural foraminal narrowing. No significa nt change from prior. Axial images at C7-T1 level remain within normal limits. Incidental 1.5 cm mucous retention cyst or polyp in the inferior right maxillary sinus sagittal image 17 is redemonstrated IMPRESSION: Multilevel spondylolisthesis and degenerative change in the cervical spine as detailed ab ove. No significant change from prior MRI.
== END | disposition home or self-care (01) ==
LOC: RADMRIMAIN 16:30
PROVIDERS: ATTEND Orthopaedic Surgery
DX: M43.12 Spondylolisthesis, cervical region (principal); M47.22 Other spondylosis with radiculopathy, cervical region
CPT/HCPCS: 72141

== ENCOUNTER → 2022-03-08 | Outpatient (CLI) | payer BC, OTHER ==
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
== END | disposition home or self-care (01) ==
LOC: RADCTMAIN 08:31
PROVIDERS: ATTEND Orthopaedic Surgery
DX: M47.22 Other spondylosis with radiculopathy, cervical region (principal); M50.122 Cervical disc disorder at C5-C6 level with radiculopathy; M99.71 Connective tissue and disc stenosis of intervertebral foramina of cervical region
CPT/HCPCS: 72125